=== PATIENT | female | born 1925 | race Caucasian/White ===

== ENCOUNTER 2016-02-24 12:19 | Emergency (ER) | payer OTHER, MEDICARE ==
[~2016-02-24] VITALS: Ht 152.4 cm; Wt 64.1 kg
[~2016-02-24 12:19] MED LIST: ACET-1311 PO; ALBUAER19 INH; ALL60 PO; ANT125 PO; ASPCH81 PO; BIOT1TAB2 PO; CALC-20 PO; DICL1GEL12 TOP; DOCU-94 PO; GLUC10007 PO; LEVO50TA PO; LIDO4PAD3 TOP; LPT10 PO; LSN25 PO; MULT-506 PO; NORT10CA4 PO; NTRGSL/4 UT; SYN50 PO; TNR25 PO
[2016-02-24 12:24] VITALS: TEMP 36.5; Ht 152.4 cm; Wt 64.1 kg
[2016-02-24 12:45] VITALS: O2SAT 97
[2016-02-24 13:18] LABS: BASO % 0.6 %; BASO ABS # 0.05 K/uL (0-0.2); COMPLETE YES; HEMATOCRIT 34.3 % (37-47); IG% 0.3 %; LYMPH % 18.5 %; LYMPH ABS # 1.67 K/uL (1.2-3.4); MEAN CELL VOLUME 98.3 fL (80-100); MEAN CORPUSCULAR HEMOGLOBIN 33.2 pg (25-34); MEAN CORPUSCULAR HGB CONC 33.8 g/dl (32-36); MEAN PLATELET VOLUME 9.1 fL (7.4-10.4); MONO % 9.1 %; NEUT % 69.5 %; PLATELET COUNT 313 K/uL (130-400); RED BLOOD COUNT 3.49 M/uL (4.2-5.4); WHITE BLOOD COUNT 9.02 K/uL (4.8-10.8)
[2016-02-24] MEDS ORDERED: CYAN10005 PO (13:33)
[2016-02-24] MEDS ORDERED: POLY1POW2 PO (13:33)
[2016-02-24] MEDS ORDERED: MULT-190 PO (13:33)
[2016-02-24 13:36] LABS: ALT/SGPT 49 U/L (12-78); BLOOD UREA NITROGEN 35 mg/dl (7-18); BUN/CREATININE RATIO 20.7 (10-20); CALCIUM 9.4 mg/dl (8.5-10.1); CARBON DIOXIDE 28 mmol/L (21-32); CHLORIDE 103 mmol/L (98-107); GLUCOSE 94 mg/dl (70-99); MAGNESIUM 2.2 mg/dl (1.8-2.4); POTASSIUM 4.8 mmol/L (3.5-5.1); SODIUM 139 mmol/L (136-145)
[2016-02-24 13:39] LABS: ALKALINE PHOSPHATASE 154 U/L (45-117); AST/SGOT 39 U/L (15-37)
--- NOTE | 2016-02-24 13:39 | DIAGNOSTIC IMAGING REPORT ---
CHEST ONE VIEW PORTABLE CLINICAL HISTORY: Altered mental status. Weakness. Hypertension. COMPARISON STUDY: 01/11/2016 FINDINGS: The heart is normal in size. There is slight interstitial thickening. This appears more pronounced than the prior study. The findings likely represent either mild pulmonary vascular congestion or interstitial inflammatory process.[ There is no lobar consolidation. There are minor left basilar atelectatic changes. There is no significant pleural fluid. IMPRESSION: Mild elevation of the interstitium, likely secondary to either mild pulmonary vascular congestion or interstitial inflammatory process. Clinical and radiographic follow-up is recommended Electronically signed by: Mariano Paz M.D. 02/24/2016 1:37 PM
--- NOTE | 2016-02-24 14:17 | EMERGENCY ROOM VISIT NOTE ---
History Report prepared by Rona: Ana Laura Negrete Under the Supervision of: Dr. Loc Webb D.O. First contact with patient: 12:45 Chief Complaint: HYPERTENSION Stated Complaint: HIGH BLOOD PRESSURE, BLURRY VISION History of Present Illness The patient is an 89 year old female arriving from [facility] who presents to the Emergency Room with complaints of hypertension, which has been elevated around 180/88 since yesterday. Since the time of onset, the patient states that she has had a headache and blurry vision, and she rates her current discomfort as a 5/10. The patient was recently admitted to the hospital for uncontrolled hypertension on February 11. During her visit, she was placed on Lisinopril along with the continuation of her other multiple blood pressure medications. Per daughter, the patient's blood pressure is normally around 150/75 at baseline , but it frequently increases secondary to chronic pain due to a previous left orbital fracture and spinal fractures after suffering a fall last spring. The patient was previously staying at [facility] but is now at [facility] for continuation of her therapy. Patient denies feeling light headed or dizzy and she does not have other complaints at this time. Daughter states that she is concerned because [facility] has not been taking the patient's blood pressure regularly as they state that they need a doctor's order to do so. She is also concerned because the patient has been acting more irritable than normal, but she is unsure if it is just due to going through the holidays without her daughter, who recently . Source of History: patient, family Onset: yesterday Position: other (generalized) Symptom Intensity: 5/10 Quality: other (htn) Associated Symptoms: + headache Note: Patient has blurred vision. She denies feeling light headed or dizzy. Review of Systems See HPI for pertinent positives & negatives. A total of 10 systems reviewed and were otherwise negative. Past Medical & Surgical Medical Problems: (1) Benign hypertension (2) Coronary artery disease (3) Elevated BP (4) Hyperlipidemia (5) Hypothyroidism (6) Urinary incontinence Surgical Problems: (1) History of arthroscopic knee surgery (2) History of bilateral cataract extraction (3) History of bladder surgery (4) History of hernia repair Family History Lung disease Social History Smoking Status: Never Smoker Alcohol Use: none Drug Use: none Marital Status: Housing Status: unknown Occupation Status: unemployed Current/Historical Medications Scheduled Acetaminophen (Tylenol), 650 MG PO DAILY Aspirin (Aspirin Tab-Chewable *), 81 MG PO BID Atenolol (Atenolol), 37.5 MG PO BID Atorvastatin (Atorvastatin Calcium), 10 MG PO DAILY Calcium Carbonate-Vitamin D (Calcium 600 + D), 1 TAB PO DAILY Cyanocobalamin (Vitamin B-12), 1,000 MCG PO DAILY Levothyroxine Sodium (Synthroid), 100 MCG PO UD Levothyroxine Sodium (Synthroid), 75 MCG PO UD Lisinopril (Lisinopril), 2.5 MG PO QAM Nitroglycerin (Nitrostat), 0.4 MG UT PRN Nortriptyline HCl (Nortriptyline HCl), 10 MG PO QPM Ocuvite Preservision (Ocuvite Preservision), 1 TAB PO DAILY Polyethylene Glycol 3350 (Bulk (Polyethylene Glycol 3350), 17 GM PO DAILY Scheduled PRN Docusate Sodium (Colace), 100 MG PO DAILY PRN for Constipation Allergies Coded Allergies: Quinolones (Unverified Allergy, Intermediate, , 02/24/16) Calcium Channel Blockers (Verified Allergy, Mild, 02/24/16) Felodipine (Verified Allergy, Mild, 02/24/16) Amlodipine (Verified Allergy, Unknown, UNKN, 02/24/16) Chloramphenicol (Verified Allergy, Unknown, UNKN, 02/24/16) Escitalopram (Verified Allergy, Unknown, UNKN, 02/24/16) Hydrochlorothiazide (Verified Allergy, Unknown, ., 02/24/16) Levalbuterol Hydrochloride (Verified Allergy, Unknown, UNKN, 02/24/16) Levofloxacin (Verified Allergy, Unknown, UNKN, 02/24/16) Terazosin (Verified Allergy, Unknown, UNKN, 02/24/16) Physical Exam Vital Signs Date Time Temp Pulse Resp B/P Pulse Ox O2 Delivery O2 Flow Rate FiO2 02/24/16 14:06 69 02/24/16 13:43 96 22 161/68 97 Room Air 02/24/16 12:46 69 18 178/79 97 Room Air 02/24/16 12:45 97 Room Air 02/24/16 12:24 36.5 74 18 151/75 98 Room Air Physical Exam VITAL SIGNS: were reviewed as above. GENERAL:Non-toxic in appearance. SKIN: Warm dry and pink. HEAD: Normocephalic and atraumatic. OROPHARYNX: Is clear and moist NECK: Supple without lymphadenopathy or meningismus. LUNGS: clear. HEART: Regular rate and rhythm. ABDOMEN: Soft and nontender. EXTREMITIES: Warm and well perfused. NEUROLOGICALLY: Awake alert and oriented without focal deficit. Cranial nerves 2 -12 are intact. There is no pronator drift. Cerebellar testing is within normal limits. There is no nystagmus. There is no facial droop. Speech is clear. Vision is grossly normal. MUSCULOSKELETAL: Good muscle tone. No evidence of trauma. Medical Decision & Procedures ER Provider Diagnostic Interpretation: X ray results and stated below per my interpretation and radiology interpretation. CHEST ONE VIEW PORTABLE CLINICAL HISTORY: Altered mental status. Weakness. Hypertension. COMPARISON STUDY: 01/11/2016 FINDINGS: The heart is normal in size. There is slight interstitial thickening. This appears more pronounced than the prior study. The findings likely represent either mild pulmonary vascular congestion or interstitial inflammatory process.[ There is no lobar consolidation. There are minor left basilar atelectatic changes. There is no significant pleural fluid. IMPRESSION: Mild elevation of the interstitium, likely secondary to either mild pulmonary vascular congestion or interstitial inflammatory process. Clinical and radiographic follow-up is recommended Electronically signed by: Mariano Paz M.D. 02/24/2016 1:37 PM Laboratory Results 02/24/16 13:10 Red Blood Count 3.49, Mean Corpuscular Volume 98.3, Mean Corpuscular Hemoglobin 33.2, Mean Corpuscular Hemoglobin Concent 33.8, Mean Platelet Volume 9.1, Neutrophils (%) (Auto) 69.5, Lymphocytes (%) (Auto) 18.5, Monocytes (%) (Auto) 9.1, Eosinophils (%) (Auto) 2.0, Basophils (%) (Auto) 0.6, Neutrophils # (Auto) 6.27, Lymphocytes # (Auto) 1.67, Monocytes # (Auto) 0.82, Eosinophils # (Auto) 0.18, Basophils # (Auto) 0.05 02/24/16 13:10 Test 02/24/16 13:10 White Blood Count 9.02 K/uL (4.8-10.8) Red Blood Count 3.49 M/uL (4.2-5.4) Hemoglobin 11.6 g/dL (12.0-16.0) Hematocrit 34.3 % (37-47) Mean Corpuscular Volume 98.3 fL (80-100) Mean Corpuscular Hemoglobin 33.2 pg (25-34) Mean Corpuscular Hemoglobin Concent 33.8 g/dl (32-36) Platelet Count 313 K/uL (130-400) Mean Platelet Volume 9.1 fL (7.4-10.4) Neutrophils (%) (Auto) 69.5 % Lymphocytes (%) (Auto) 18.5 % Monocytes (%) (Auto) 9.1 % Eosinophils (%) (Auto) 2.0 % Basophils (%) (Auto) 0.6 % Neutrophils # (Auto) 6.27 K/uL (1.4-6.5) Lymphocytes # (Auto) 1.67 K/uL (1.2-3.4) Monocytes # (Auto) 0.82 K/uL (0.11-0.59) Eosinophils # (Auto) 0.18 K/uL (0-0.5) Basophils # (Auto) 0.05 K/uL (0-0.2) RDW Standard Deviation 49.0 fL (36.4-46.3) RDW Coefficient of Variation 13.8 % (11.5-14.5) Immature Granulocyte % (Auto) 0.3 % Immature Granulocyte # (Auto) 0.03 K/uL (0.00-0.02) Anion Gap 8.0 mmol/L (3-11) Est Creatinine Clear Calc Drug Dose 18.7 ml/min Estimated GFR () 30.5 Estimated GFR (Non- 26.3 BUN/Creatinine Ratio 20.7 (10-20) Calcium Level 9.4 mg/dl (8.5-10.1) Magnesium Level 2.2 mg/dl (1.8-2.4) Total Bilirubin 0.3 mg/dl (0.2-1) Direct Bilirubin 0.1 mg/dl (0-0.2) Aspartate Amino Transf (AST/SGOT) 39 U/L (15-37) Alanine Aminotransferase (ALT/SGPT) 49 U/L (12-78) Alkaline Phosphatase 154 U/L (45-117) Total Creatine Kinase 46 U/L (26-192) Creatine Kinase MB < 0.5 ng/ml (0.5-3.6) Creatine Kinase MB Ratio (0-3.0) Troponin I < 0.015 ng/ml (0-0.045) Total Protein 7.0 gm/dl (6.4-8.2) Albumin 3.7 gm/dl (3.4-5.0) Lipase 181 U/L (73-393) Laboratory results as stated above per my review. ED Course 1248: Previous medical records were reviewed. The patient was evaluated in room C2. A complete history and physical examination was performed. 1415: Upon reevaluation, the patient appeared to be doing well and was resting more comfortably. I updated her and her family on the results of her radiology reports and lab tests. Discharge instructions were also discussed at this time. They verbalized their understanding and agreement with the treatment plan, and she is now ready for disposition. Medical Decision Differential diagnosis: Etiologies such as benign hypertension, hypertensive emergency, cardiovascular pathology, pheochromocytoma, electrolyte abnormality, renal disease, endorgan damage, as well as others were entertained. This is an 89-year-old female who presents to the ED with a chief complaint of hypertension. The patient states that she had a slight headache and some blurring of her vision earlier today. She states that her blood pressure was elevated and she came here for evaluation. Her initial blood pressure on my assessment was 178/79. Her physical exam did not show any obvious abnormalities. Funduscopic exam of the eyes was normal. The eyes otherwise had no abnormal visible findings. X-ray of her motion was intact. The patient' s neurologic exam was also normal. CBC was normal, BUN is 35 creatinine is 1.7. Cardiac enzymes are negative. Chest x-ray was negative for acute disease. The patient was told results. She is felt to be stable for discharge. She has follow-up with her PCP tomorrow. Last BP here was 156/87. Impression Primary Impression: Elevated BP Additional Impression: Renal insufficiency Scribe Attestation The scribe's documentation has been prepared under my direction and personally reviewed by me in its entirety. I confirm that the note above accurately reflects all work, treatment, procedures, and medical decision making performed by me. Departure Information Dispostion Home / Self-Care Referrals David Henao PA-C (PCP) Forms HOME CARE DOCUMENTATION FORM, IMPORTANT VISIT INFORMATION, WORK / SCHOOL INSTRUCTIONS Patient Instructions A Signature Page, Hypertension Control, My [facility] [employer] Additional Instructions Talk to your doctor about further hypertension management. See your doctor tomorrow as scheduled. Follow-up with your doctor for further care and evaluation in 1-2 days. Return to the emergency department for worsening or new symptoms or any concerns. You have been examined and treated today on an emergency basis only. This is not a substitute for, or an effort to provide, complete comprehensive medical care. It is impossible to recognize and treat all injuries or illnesses in a single emergency department visit. It is therefore important that you follow up closely with your doctor. Call as soon as possible for an appointment.
[2016-02-24 14:51] VITALS: BP 163/65; PULSE 70; O2SAT 96
== END 2016-02-24 14:52 | disposition home or self-care (01) ==
LOC: C.EDB 12:23 → C.EDC 14:52
DX: I10 Essential (primary) hypertension (principal); N28.9 Disorder of kidney and ureter, unspecified; G89.29 Other chronic pain; I25.10 Atherosclerotic heart disease of native coronary artery without angina pectoris; E78.5 Hyperlipidemia, unspecified; E03.9 Hypothyroidism, unspecified; Z79.82 Long term (current) use of aspirin

== ENCOUNTER 2016-03-31 20:33 | Inpatient (IN) | payer OTHER, MEDICARE ==
[~2016-03-31] VITALS: Ht 154.9 cm; Wt 66.8 kg
[~2016-03-31 20:33] MED LIST changes: -ALBUAER19 INH; -ALL60 PO; -ANT125 PO; -BIOT1TAB2 PO; +CYAN10005 PO; -DICL1GEL12 TOP; -GLUC10007 PO; -LIDO4PAD3 TOP; +MULT-190 PO; -MULT-506 PO; +POLY1POW2 PO
[2016-03-31] MEDS ORDERED: FENTANYL CITRATE INJ 50 MCG/1 ML 2 ML VIAL IV STA (21:13)
--- NOTE | 2016-03-31 21:58 | EMERGENCY ROOM VISIT NOTE ---
History First contact with patient: 21:02 Chief Complaint: HIP PAIN Stated Complaint: FALL, HIP PAIN, KNEE PAIN History of Present Illness The patient is a 89 year old female who presents to the Emergency Room via BLS with complaints of right hip pain after a fall. The patient reports that she was getting dressed for bed and tripped while taking that her pains off, falling onto her right hip. She lives in [facility]. She denies hitting her head when she fell. She denies any other injuries. She reports pain in the right hip radiating down into the right knee. She denies previous injuries to the hip. She rates her discomfort a 10/10. She denies any numbness of the leg, but states she is unable to lift the leg off the bed. The patient has not taken anything for pain. She denies any significant cardiac history. She denies headache, dizziness, chest pain, shortness of breath, abdominal pain or urinary symptoms. Review of Systems A complete 10-point Review of Systems was discussed with the patient, with pertinent positives and negatives listed in the History of Present Illness. All remaining Review of Systems questions can be considered negative unless otherwise specified. Past Medical/Surgical History Medical Problems: (1) Benign hypertension (2) Coronary artery disease (3) Elevated BP (4) Hyperlipidemia (5) Hypothyroidism (6) Urinary incontinence Surgical Problems: (1) History of arthroscopic knee surgery (2) History of bilateral cataract extraction (3) History of bladder surgery (4) History of hernia repair Family History Lung disease Social History Smoking Status: Never Smoker Alcohol Use: none Drug Use: none Marital Status: Housing Status: unknown Occupation Status: unemployed Current/Historical Medications Scheduled Acetaminophen (Tylenol), 650 MG PO DAILY Aspirin (Aspirin Ec), 81 MG PO DAILY Atenolol (Atenolol), 37.5 MG PO BID Atorvastatin (Atorvastatin Calcium), 10 MG PO DAILY Calcium Carbonate-Vitamin D (Sm Calcium 500/Vitamin D3), 1 TAB PO DAILY Cyanocobalamin (Vitamin B-12), 1,000 MCG PO DAILY Diclofenac Sod (Voltaren), 1 APPLN TOP DAILY Levothyroxine Sodium (Synthroid), 100 MCG PO UD Levothyroxine Sodium (Synthroid), 75 MCG PO UD Lisinopril (Lisinopril), 2.5 MG PO BID Nitroglycerin (Nitrostat), 0.4 MG UT PRN Nortriptyline HCl (Nortriptyline HCl), 10 MG PO QPM Ocuvite Preservision (Ocuvite Preservision), 1 TAB PO DAILY Scheduled PRN Albuterol Hfa (Ventolin Hfa), 2 PUFF INH Q4 PRN for Wheezing Docusate Sodium (Colace), 100 MG PO DAILY PRN for Constipation Miscellaneous Medications Glucosamine Sulfate (Glucosamine), Unknown Dose Allergies Coded Allergies: Quinolones (Unverified Allergy, Intermediate, , 03/31/16) Calcium Channel Blockers (Verified Allergy, Mild, 03/31/16) Felodipine (Verified Allergy, Mild, 03/31/16) Amlodipine (Verified Allergy, Unknown, UNKN, 03/31/16) Chloramphenicol (Verified Allergy, Unknown, UNKN, 03/31/16) Escitalopram (Verified Allergy, Unknown, UNKN, 03/31/16) Hydrochlorothiazide (Verified Allergy, Unknown, ., 03/31/16) Levalbuterol Hydrochloride (Verified Allergy, Unknown, UNKN, 03/31/16) Levofloxacin (Verified Allergy, Unknown, UNKN, 03/31/16) Levothyroxine (Unverified Allergy, Unknown, UNKNOWN(CAN'T TAKE GENERIC, BRAND SYNTHROID IS OK), 03/31/16) Terazosin (Verified Allergy, Unknown, UNKN, 03/31/16) Physical Exam Vital Signs Date Time Temp Pulse Resp B/P Pulse Ox O2 Delivery O2 Flow Rate FiO2 03/31/16 22:12 72 18 164/74 98 Room Air 03/31/16 20:45 72 03/31/16 20:37 98 Room Air 03/31/16 20:35 36.6 87 18 178/98 97 Room Air Physical Exam VITALS: Vitals are noted on the nurse's note and reviewed by myself. Vital signs stable. GENERAL: This is an 89-year-old female, in no acute distress, nondiaphoretic, well-developed well-nourished. SKIN: The skin was without rashes, erythema, edema, or bruising. HEAD: Normocephalic atraumatic. EYES: Pupils equal round and reactive to light and accommodation. MOUTH: Mucous membranes moist. NECK: Supple without nuchal rigidity. Cervical spine is nontender. HEART: Regular rate and rhythm without murmurs gallops or rubs. LUNGS: Clear to auscultation bilaterally without wheezes, rales or rhonchi. ABDOMEN: Positive bowel sounds x 4. Soft, nontender. MUSCULOSKELETAL: The right leg is shortened and externally rotated. Tenderness over the lateral hip and lateral right knee. Dorsalis pedis pulses 2+. NEURO: Patient was alert and oriented to person place and time. Normal sensation to light and sharp touch. Medical Decision & Procedures ER Provider Diagnostic Interpretation: RIGHT FEMUR 2 VIEWS ROUTINE IMPRESSION: 1. Acute intertrochanteric right hip fracture. 2. 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 Laboratory Results 03/31/16 22:25 Red Blood Count 3.46, Mean Corpuscular Volume 98.3, Mean Corpuscular Hemoglobin 33.5, Mean Corpuscular Hemoglobin Concent 34.1, Mean Platelet Volume 9.4, Neutrophils (%) (Auto) 86.0, Lymphocytes (%) (Auto) 7.1, Monocytes (%) (Auto) 5.7, Eosinophils (%) (Auto) 0.6, Basophils (%) (Auto) 0.2, Neutrophils # (Auto) 15.27, Lymphocytes # (Auto) 1.25, Monocytes # (Auto) 1.01, Eosinophils # (Auto) 0.10, Basophils # (Auto) 0.03 Test 03/31/16 22:25 White Blood Count 17.73 K/uL (4.8-10.8) Red Blood Count 3.46 M/uL (4.2-5.4) Hemoglobin 11.6 g/dL (12.0-16.0) Hematocrit 34.0 % (37-47) Mean Corpuscular Volume 98.3 fL (80-100) Mean Corpuscular Hemoglobin 33.5 pg (25-34) Mean Corpuscular Hemoglobin Concent 34.1 g/dl (32-36) Platelet Count 274 K/uL (130-400) Mean Platelet Volume 9.4 fL (7.4-10.4) Neutrophils (%) (Auto) 86.0 % Lymphocytes (%) (Auto) 7.1 % Monocytes (%) (Auto) 5.7 % Eosinophils (%) (Auto) 0.6 % Basophils (%) (Auto) 0.2 % Neutrophils # (Auto) 15.27 K/uL (1.4-6.5) Lymphocytes # (Auto) 1.25 K/uL (1.2-3.4) Monocytes # (Auto) 1.01 K/uL (0.11-0.59) Eosinophils # (Auto) 0.10 K/uL (0-0.5) Basophils # (Auto) 0.03 K/uL (0-0.2) RDW Standard Deviation 48.5 fL (36.4-46.3) RDW Coefficient of Variation 13.5 % (11.5-14.5) Immature Granulocyte % (Auto) 0.4 % Immature Granulocyte # (Auto) 0.07 K/uL (0.00-0.02) Medications Administered Medications (Trade) Dose Ordered Sig/[place] Route Start Time Stop Time Status Last Admin Dose Admin Fentanyl Citrate (Fentanyl Inj) 50 mcg NOW STAT IV 03/31/16 21:13 03/31/16 21:15 DC 03/31/16 21:33 50 MCG ECG Rate (beats per minute): 72 Rhythm: normal sinus Findings: no acute ischemic change, no ectopy Comparison ECG Date: no prior available Medical Decision Differential diagnosis includes hip fracture, hip dislocation, contusion, sprain , among others. The patient was evaluated as above. Labs were drawn and IV access was obtained. Imaging studies were performed and read by radiology as above. The patient was medicated with 50 mg fentanyl IV. She had continued pain and was given 4 mg morphine IV. The patient was reassessed multiple times during their stay in the emergency department and remained in stable condition. The patient is an 89-year-old female who presents today complaining of right hip pain after a fall. X-ray showed a right intertrochanteric hip fracture. There is fragmentation of the patella which may be chronic. Preoperative labs, chest x-ray and EKG were performed. Case was discussed with Dr. Angel, on- call for [facility], who recommended medical admission. All findings were discussed with the patient and family members. They verbalized their understanding. Case was discussed with the [facility] hospitalist, who agreed to evaluate the patient for admission. Impression Primary Impression: Intertrochanteric fracture of right hip Departure Information Referrals David Henao PA-C (PCP) Patient Instructions Critical Access Hospital Problem Qualifiers Primary Impression: Intertrochanteric fracture of right hip Encounter type: initial encounter Fracture type: closed Qualified Codes: S72.141A - Displaced intertrochanteric fracture of right femur, initial encounter for closed fracture
[2016-03-31] MEDS ORDERED: CALC-55 PO (22:08)
[2016-03-31] MEDS ORDERED: VLTG TOP (22:08)
[2016-03-31] MEDS ORDERED: GLUC500C4 (22:08)
[2016-03-31] MEDS ORDERED: ASPI81TA28 PO (22:08)
[2016-03-31] MEDS ORDERED: LSN25 PO (22:08)
[2016-03-31] MEDS ORDERED: VNTHFA/IN INH (22:08)
--- NOTE | 2016-03-31 22:20 | DIAGNOSTIC IMAGING REPORT ---
RIGHT FEMUR 2 VIEWS ROUTINE CLINICAL HISTORY: Right hip pain status post trauma COMPARISON: None. DISCUSSION: There is an acute intertrochanteric right hip fracture with varus angulation. No additional femoral fractures are visualized. There are osteoarthritic changes present at the level of the knee. Fragmentation of the patella, is likely chronic. IMPRESSION: 1. Acute intertrochanteric right hip fracture. 2. 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 03/31/2016 10:19 PM Dictated Date/Time: 03/31/2016 10:17 PM
--- NOTE | 2016-03-31 22:21 | DIAGNOSTIC IMAGING REPORT ---
PELVIS 1 OR 2 VIEW ROUTINE CLINICAL HISTORY: Pelvic pain status post trauma COMPARISON STUDY: No previous studies for comparison. FINDINGS: There is an acute intertrochanteric right hip fracture with resultant varus angulation. The bones are osteopenic. IMPRESSION: Intertrochanteric right hip fracture Electronically signed by: Mariano Paz M.D. 03/31/2016 10:20 PM Dictated Date/Time: 03/31/2016 10:19 PM
--- NOTE | 2016-03-31 22:22 | DIAGNOSTIC IMAGING REPORT ---
CHEST ONE VIEW PORTABLE CLINICAL HISTORY: Hip fracture. Trauma. COMPARISON STUDY: 02/24/2016 FINDINGS: The heart is at the upper limits of normal in size. There is no failure. There is no lobar consolidation. There are minor basilar atelectatic changes.[ IMPRESSION: No active disease in the chest. Electronically signed by: Mariano Paz M.D. 03/31/2016 10:20 PM Dictated Date/Time: 03/31/2016 10:20 PM
[2016-03-31 22:42] LABS: BASO % 0.2 %; BASO ABS # 0.03 K/uL (0-0.2); COMPLETE YES; EOS % 0.6 %; IG% 0.4 %; LYMPH % 7.1 %; LYMPH ABS # 1.25 K/uL (1.2-3.4); MEAN CELL VOLUME 98.3 fL (80-100); MEAN CORPUSCULAR HEMOGLOBIN 33.5 pg (25-34); MEAN CORPUSCULAR HGB CONC 34.1 g/dl (32-36); MEAN PLATELET VOLUME 9.4 fL (7.4-10.4); MONO % 5.7 %; PLATELET COUNT 274 K/uL (130-400); RED BLOOD COUNT 3.46 M/uL (4.2-5.4); WHITE BLOOD COUNT 17.73 K/uL (4.8-10.8)
[2016-03-31] MEDS ORDERED: MoRPHine SULFATE 4 MG/ML 1 ML CARP\\VIAL IV STA (22:49)
[2016-03-31 22:53] LABS: PARTIAL THROMBOPLASTIN RATIO 0.9; PROTHROMBIN TIME (PATIENT) 10.7 SECONDS (9.0-12.0)
[2016-03-31 22:56] LABS: BUN/CREATININE RATIO 22.7 (10-20); CALCIUM 8.9 mg/dl (8.5-10.1); CREATININE 1.8 mg/dl (0.60-1.20); POTASSIUM 4.3 mmol/L (3.5-5.1)
[2016-03-31 22:58] LABS: ALB/GLOB RATIO 1.3 (0.9-2)
[2016-03-31] MEDS ORDERED: ONDANSETRON INJ 2 MG/ML 2 ML VIAL IV PRN (23:45)
[2016-03-31] MEDS ORDERED: MAGNESIUM HYDROXIDE SUSP 30 ML UDC PO PRN (23:45)
[2016-03-31] MEDS ORDERED: ALUMINUM/MAGNESIUM/SIMETH (MAALOX MAX) 30 ML UDC PO PRN (23:45)
[2016-04-01] VITALS (10 sets, daily range): BP systolic 128–171; BP diastolic 52–74; PULSE 78–88; TEMP 36.2–37.1; O2SAT 91–100; Ht 154.9 cm; Wt 66.8 kg
[2016-04-01] MEDS: ACETAMINOPHEN 325 MG TAB PO PRN ×2 (01:10→19:49)
[2016-04-01] MEDS ORDERED: MoRPHine SULFATE 2 MG/ML CARP IV PRN (01:30)
[2016-04-01] MEDS ORDERED: DOCUSATE SODIUM 100 MG CAP PO PRN (01:30)
[2016-04-01] MEDS ORDERED: ALBUTEROL HFA 8 GM INHALER INH PRN (01:30)
[2016-04-01] MEDS ORDERED: NITROGLYCERIN 0.4 MG SL PER TAB CHARGE UT SCH (01:30)
[2016-04-01] MEDS ORDERED: MoRPHine SULFATE 4 MG/ML 1 ML CARP\\VIAL IV PRN (01:30)
[2016-04-01] MEDS: SODIUM CHLORIDE 0.9% 1000ML 1,000 ML IV SCH ×3 (01:56→17:16)
--- NOTE | 2016-04-01 01:56 | History and Physical ---
History & Physical Date & Time of Service: Apr 01, 2016 at 01:52 Chief Complaint: Intertrochanteric Fracture Of Right Hip Primary Care Physician: David Henao PA-C History of Present Illness Source: patient This is an 89 yo f that is presenting to us after a fall and having suffered a right intertrochanteric fracture. She states that she was getting into bed and had a mechanical fall. She denies having hit her head. She denies any dizziness , chest pain, palpitations or shortness or breath. She currently is unable to move her right left because of pain. It is currently a 10/10 with any movement but is acceptable when patient is resting. She has a history of a closed head injury in the past patient will occasionally repeat histories over again during the interview however patient is completely oriented. Past Medical/Surgical History Medical Problems: (1) Benign hypertension Status: Chronic (2) Coronary artery disease Status: Chronic (3) Hyperlipidemia Status: Chronic (4) Hypothyroidism Status: Chronic (5) Urinary incontinence Status: Chronic Family History Lung disease Social History Smoking Status: Never Smoker Smokeless Tobacco Use: No Alcohol Use: none Drug Use: none Marital Status: Occupational Status: unemployed Immunizations History of Influenza Vaccine: Yes Influenza Vaccine Date: Nov 22, 2011 History of Tetanus Vaccine?: long time ago History of Pneumococcal: Unknown History of Hepatitis B Vaccine: Unknown Multi-Drug Resistant Organisms History of MDRO: No Allergies Coded Allergies: Quinolones (Unverified Allergy, Intermediate, , 03/31/16) Calcium Channel Blockers (Verified Allergy, Mild, 03/31/16) Felodipine (Verified Allergy, Mild, 03/31/16) Amlodipine (Verified Allergy, Unknown, UNKN, 03/31/16) Chloramphenicol (Verified Allergy, Unknown, UNKN, 03/31/16) Escitalopram (Verified Allergy, Unknown, UNKN, 03/31/16) Hydrochlorothiazide (Verified Allergy, Unknown, ., 03/31/16) Levalbuterol Hydrochloride (Verified Allergy, Unknown, UNKN, 03/31/16) Levofloxacin (Verified Allergy, Unknown, UNKN, 03/31/16) Levothyroxine (Unverified Allergy, Unknown, UNKNOWN(CAN'T TAKE GENERIC, BRAND SYNTHROID IS OK), 03/31/16) Terazosin (Verified Allergy, Unknown, UNKN, 03/31/16) Home Medications Scheduled Acetaminophen (Tylenol), 650 MG PO DAILY Aspirin (Aspirin Ec), 81 MG PO DAILY Atenolol (Atenolol), 37.5 MG PO BID Atorvastatin (Atorvastatin Calcium), 10 MG PO DAILY Calcium Carbonate-Vitamin D (Sm Calcium 500/Vitamin D3), 1 TAB PO DAILY Cyanocobalamin (Vitamin B-12), 1,000 MCG PO DAILY Diclofenac Sod (Voltaren), 1 APPLN TOP DAILY Levothyroxine Sodium (Synthroid), 100 MCG PO UD Levothyroxine Sodium (Synthroid), 75 MCG PO UD Lisinopril (Lisinopril), 2.5 MG PO BID Nitroglycerin (Nitrostat), 0.4 MG UT PRN Nortriptyline HCl (Nortriptyline HCl), 10 MG PO QPM Ocuvite Preservision (Ocuvite Preservision), 1 TAB PO DAILY Scheduled PRN Albuterol Hfa (Ventolin Hfa), 2 PUFF INH Q4 PRN for Wheezing Docusate Sodium (Colace), 100 MG PO DAILY PRN for Constipation Miscellaneous Medications Glucosamine Sulfate (Glucosamine), Unknown Dose Review of Systems Constitutional: No fever Eyes: No worsening of vision ENT: No hearing loss Respiratory: No cough, No dyspnea at rest, No dyspnea on exertion, No shortness of breath, No sputum, No wheezing Cardiovascular: No chest pain Abdomen: No constipation, No diarrhea, No nausea, No pain, No vomiting Musculoskeletal: + joint pain, + muscle pain Psychiatric: No anxiety, No depression symptoms Endocrine: No fatigue Integumentary: No rash Physical Exam Vital Signs Date Time Temp Pulse Resp B/P Pulse Ox O2 Delivery O2 Flow Rate FiO2 04/01/16 00:08 36.2 82 14 168/70 94 Room Air 03/31/16 23:39 79 16 145/60 94 Room Air 03/31/16 22:12 72 18 164/74 98 Room Air 03/31/16 20:45 72 03/31/16 20:37 98 Room Air 03/31/16 20:35 36.6 87 18 178/98 97 Room Air General Appearance: WD/WN, no apparent distress Head: normocephalic, atraumatic Eyes: normal inspection ENT: normal ENT inspection, + pertinent finding (NINILCHIK) Neck: supple Respiratory/Chest: lungs clear, normal breath sounds, no respiratory distress, no accessory muscle use Cardiovascular: regular rate, rhythm, no murmur Abdomen/GI: normal bowel sounds, non tender, soft Back: normal inspection Extremities/Musculoskelatal: no pedal edema, + pertinent finding (able to move right toes, neurovascularly intact in both LE, swelling noted over the right hip but no open wounds) Neurologic/Psych: alert, normal mood/affect, oriented x 3 Skin: normal color, warm/dry, no rash Lymphatic: no adenopathy Diagnostics Laboratory Results Results Past 24 Hours Test 03/31/16 22:25 Range/Units White Blood Count 17.73 4.8-10.8 K/uL Red Blood Count 3.46 4.2-5.4 M/uL Hemoglobin 11.6 12.0-16.0 g/dL Hematocrit 34.0 37-47 % Mean Corpuscular Volume 98.3 80-100 fL Mean Corpuscular Hemoglobin 33.5 25-34 pg Mean Corpuscular Hemoglobin Concent 34.1 32-36 g/dl Platelet Count 274 130-400 K/uL Mean Platelet Volume 9.4 7.4-10.4 fL Neutrophils (%) (Auto) 86.0 % Lymphocytes (%) (Auto) 7.1 % Monocytes (%) (Auto) 5.7 % Eosinophils (%) (Auto) 0.6 % Basophils (%) (Auto) 0.2 % Neutrophils # (Auto) 15.27 1.4-6.5 K/uL Lymphocytes # (Auto) 1.25 1.2-3.4 K/uL Monocytes # (Auto) 1.01 0.11-0.59 K/uL Eosinophils # (Auto) 0.10 0-0.5 K/uL Basophils # (Auto) 0.03 0-0.2 K/uL RDW Standard Deviation 48.5 36.4-46.3 fL RDW Coefficient of Variation 13.5 11.5-14.5 % Immature Granulocyte % (Auto) 0.4 % Immature Granulocyte # (Auto) 0.07 0.00-0.02 K/uL Prothrombin Time 10.7 9.0-12.0 SECONDS Prothromb Time International Ratio 1.0 0.9-1.1 Activated Partial Thromboplast Time 23.8 21.0-31.0 SECONDS Partial Thromboplastin Ratio 0.9 Sodium Level 137 136-145 mmol/L Potassium Level 4.3 3.5-5.1 mmol/L Chloride Level 100 98-107 mmol/L Carbon Dioxide Level 26 21-32 mmol/L Anion Gap 11.0 3-11 mmol/L Blood Urea Nitrogen 41 7-18 mg/dl Creatinine 1.80 0.60-1.20 mg/dl Est Creatinine Clear Calc Drug Dose 18.5 ml/min Estimated GFR () 28.4 Estimated GFR (Non- 24.5 BUN/Creatinine Ratio 22.7 10-20 Random Glucose 110 70-99 mg/dl Calcium Level 8.9 8.5-10.1 mg/dl Total Bilirubin 0.4 0.2-1 mg/dl Aspartate Amino Transf (AST/SGOT) 37 15-37 U/L Alanine Aminotransferase (ALT/SGPT) 40 12-78 U/L Alkaline Phosphatase 121 45-117 U/L Total Protein 7.0 6.4-8.2 gm/dl Albumin 3.9 3.4-5.0 gm/dl Globulin 3.1 2.5-4.0 gm/dl Albumin/Globulin Ratio 1.3 0.9-2 Microbiology Results 04/01/16 MRSA DNA Surveillance Screen, Received Pending Diagnostic Radiology CHEST ONE VIEW PORTABLE CLINICAL HISTORY: Hip fracture. Trauma. COMPARISON STUDY: 02/24/2016 FINDINGS: The heart is at the upper limits of normal in size. There is no failure. There is no lobar consolidation. There are minor basilar atelectatic changes.[ IMPRESSION: No active disease in the chest. RIGHT FEMUR 2 VIEWS ROUTINE CLINICAL HISTORY: Right hip pain status post trauma COMPARISON: None. DISCUSSION: There is an acute intertrochanteric right hip fracture with varus angulation. No additional femoral fractures are visualized. There are osteoarthritic changes present at the level of the knee. Fragmentation of the patella, is likely chronic. IMPRESSION: 1. Acute intertrochanteric right hip fracture. 2. 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 FINDINGS: There is an acute intertrochanteric right hip fracture with resultant varus angulation. The bones are osteopenic. IMPRESSION: Intertrochanteric right hip fracture Impression Assessment and Plan This is a 89 yo f with a right intertrochanteric fracture which requires surgical intervention Right intertrochanteric fracture - NPO after midnight - consult ortho - pain control with morphine - zofran JESSICA on CKD III vs worsening CKD - Cr is currently 1.8 and was 1.7 in Feb - dec 2015 was 1.4 - question if this is worsening CKD - NSS @ 100 cc HTN - hold lisinopril - cont atenolol once not NPO - ASA held Hyperchol - cont atorvastatin once not NPO hypothyroidism - cont levo once not NPO Depression - cont nortriptyline once not NPO DVt prophylaxis - SCD FULL CODE Level of Care Med/Surg Resuscitation Status FULL RESUSCITATION VTE Prophylaxis VTE Risk Assessment Done? Y/N: Yes Risk Level: Moderate Given or contraindicated: SCD's Social Service Consult >80 yr.& Lives Alone Note Total Time: Critical Care 30 - 74 minutes Additional Copies To David Henao PA-C Assessment and Plan Attending Addendum: I have physically seen and examined this patient, have directed their medical care, have supervised the medical residents activities, and agree with the H&P as noted above, with the following changes: NONE The patient is awake, well-developed and adequately nourished, alert and oriented 3, normocephalic and atraumatic, lying in bed and in no acute distress. HEENT--PERRL, EOMI, mucous membranes and oropharynx dry. Neck--supple, no JVD or bruits, thyroid normal, trachea midline, no adenopathy. Heart--normal S1 and S2, no extra beats, no murmurs, rubs or gallops. Lungs--clear bilaterally, no respiratory distress, no accessory muscle use. Abdomen--normal bowel sounds and soft, nontender and nondistended, no hernias or masses, no organomegaly. Extremities--no cyanosis, clubbing or edema. There are good distal pulses b/l. Dermatologic--normal skin turgor, normal color, warm and dry, no abnormal lymph nodes, no rash. Neurologic--cranial nerves II through XII grossly intact. Rheumatologic--reproducible right hip pain. Psychiatric--normal affect. Assessment and Plan: Right intertrochanteric hip fracture--the patient be admitted to the medical surgical floor. She'll be kept nothing by mouth after midnight for possible surgery in the a.m. Her EKG and chest x-ray both been reviewed, and the patient be considered an acceptable risk for the upcoming surgery. Orthopedics will be consulted. 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 CAD/hypertension--continue atenolol for 7.5 mg by mouth twice a day. Hold lisinopril 2.5 mg by mouth twice a day and aspirin 81 mg by mouth daily. Hypothyroidism--continue levothyroxine sodium at present dosing 175 g by mouth daily. Hypercholesterolemia--continue atorvastatin 10 mg by mouth daily. Insomnia--continue nortriptyline 10 mg by mouth every afternoon.
[2016-04-01] MEDS: LEVOTHYROXINE 75 MCG TAB PO SCH (06:03)
[2016-04-01] MEDS: CYANOCOBALAMIN 500 MCG TAB (VIT B-12) PO SCH (07:10)
[2016-04-01] MEDS: CALCIUM 600MG + VIT D 400 IU TAB PO SCH (07:10)
[2016-04-01] MEDS: ACETAMINOPHEN 325 MG TAB PO SCH (07:10)
[2016-04-01] MEDS: CEROVITE ADV FORMULA TAB PO SCH (07:10)
[2016-04-01] MEDS: ATORVASTATIN 10 MG TAB PO SCH (07:10)
[2016-04-01] MEDS: DICLOFENAC SOD 1% GEL 100 GM TUBE EXT SCH (07:19)
[2016-04-01] MEDS ORDERED: HydrALAZINE HCL 20 MG/ML VIAL IV. PRN (07:45)
[2016-04-01] MEDS ORDERED: LISINOPRIL 2.5 MG TAB PO SCH (09:00)
[2016-04-01] MEDS ORDERED: FENTANYL CITRATE INJ 50 MCG/1 ML 2 ML VIAL IV PRN (13:15)
[2016-04-01] MEDS ORDERED: ATROPINE SULFATE 0.1 MG/ML 5ML SYR IV PRN (13:15)
[2016-04-01] MEDS ORDERED: ONDANSETRON INJ 2 MG/ML 2 ML VIAL IV PRN (13:15)
--- NOTE | 2016-04-01 13:34 | History & Physical Bridge Note ---
H&P Re-Evaluation Bridge Note: I have examined the patient, reviewed the History & Physical and in the interval since the performance of the History & Physical I have noted the following changes of clinical significance: No changes noted
[2016-04-01] MEDS ORDERED: NURSING VERBAL MED ORDER ONE (13:45)
[2016-04-01] MEDS ORDERED: CEFAZOLIN SOD 1000MG/55 ML D5W IV ONE (13:52)
--- NOTE | 2016-04-01 14:01 | Progress Note ---
Subjective Date of Service: Apr 01, 2016. Subjective Pt evaluation today including: conversation w/ patient, physical exam, chart review, lab review, review of studies, conversation w/ economics consultant, review of inpatient medication list Pain fairly controlled, awake and alert, conversational, no other complaints Problem List Medical Problems: (1) Blurred vision, bilateral Status: Acute (2) Hypertensive urgency Status: Acute (3) Intertrochanteric fracture of right hip Status: Acute (4) Left leg weakness Status: Acute (5) Near syncope Status: Acute (6) Pancreatitis Status: Acute (7) Renal insufficiency Status: Acute Review of Systems Constitutional: No chills, No fatigue, No fever, No problem reported, No see HPI, No sweats, No weakness, No weight loss Eyes: No diplopia, No discharge, No eye pain, No problem reported, No redness, No see HPI, No worsening of vision ENT: No dental problems, No hearing loss, No nasal symptoms, No problem reported, No see HPI, No sore throat, No tinnitus, No trouble swallowing, No unusual epistaxis Respiratory: No cough, No dyspnea at rest, No dyspnea on exertion, No hemoptysis, No problem reported, No see HPI, No shortness of breath, No sputum, No wheezing Cardiac: No PND, No chest pain, No claudication, No edema, No orthopnea, No palpitations, No problem reported, No see HPI Abdomen: No GI bleeding, No constipation, No diarrhea, No nausea, No pain, No problem reported, No see HPI, No vomiting Musculoskeletal: + joint pain (reported no pain if no improvement in the right hip), No calf pain, No muscle pain, No problem reported, No see HPI, No swelling Neurologic: No balance problems, No memory loss, No numbness/tingling, No paralysis, No problem reported, No see HPI, No vertigo, No weakness Psychiatric: No anhedonism, No anxiety, No depression symptoms, No insomnia, No problem reported, No see HPI, No substance abuse Objective Vital Signs Date Time Temp Pulse Resp B/P Pulse Ox O2 Delivery O2 Flow Rate FiO2 04/01/16 07:25 36.7 82 16 171/74 94 Room Air 04/01/16 07:24 Room Air 04/01/16 00:08 36.2 82 14 168/70 94 Room Air 04/01/16 00:00 36.2 82 14 168/70 Room Air 04/01/16 00:00 Room Air 03/31/16 23:39 79 16 145/60 94 Room Air 03/31/16 22:12 72 18 164/74 98 Room Air 03/31/16 20:45 72 03/31/16 20:37 98 Room Air 03/31/16 20:35 36.6 87 18 178/98 97 Room Air Physical Exam General Appearance: WD/WN, no apparent distress, + thin, + pertinent finding ( pleasant and conversational) Eyes: normal inspection, PERRL, EOMI, sclerae normal ENT: normal ENT inspection, hearing grossly normal, pharynx normal Neck: supple, no adenopathy, thyroid normal, no JVD, no carotid bruits, trachea midline Respiratory/Chest: chest non-tender, normal breath sounds, no respiratory distress, no accessory muscle use, + decreased breath sounds Cardiovascular: regular rate, rhythm, no edema, no gallop, no JVD, no murmur Abdomen: normal bowel sounds, non tender, soft, no organomegaly, no pulsatile mass Extremities: no pedal edema, no calf tenderness, normal capillary refill, pelvis stable, + pertinent finding (Riepe leg external rotated and shortened, pulse positive bilaterally lower exts) Neurologic/Psychiatric: scouring pads supervisor II-XII nml as tested, no motor/sensory deficits, alert, normal mood/affect, oriented x 3 Skin: normal color, warm/dry, no rash Lymphatic: no adenopathy Laboratory Results Last 24 Hours Test 03/31/16 22:25 White Blood Count 17.73 K/uL Red Blood Count 3.46 M/uL Hemoglobin 11.6 g/dL Hematocrit 34.0 % Mean Corpuscular Volume 98.3 fL Mean Corpuscular Hemoglobin 33.5 pg Mean Corpuscular Hemoglobin Concent 34.1 g/dl Platelet Count 274 K/uL Mean Platelet Volume 9.4 fL Neutrophils (%) (Auto) 86.0 % Lymphocytes (%) (Auto) 7.1 % Monocytes (%) (Auto) 5.7 % Eosinophils (%) (Auto) 0.6 % Basophils (%) (Auto) 0.2 % Neutrophils # (Auto) 15.27 K/uL Lymphocytes # (Auto) 1.25 K/uL Monocytes # (Auto) 1.01 K/uL Eosinophils # (Auto) 0.10 K/uL Basophils # (Auto) 0.03 K/uL RDW Standard Deviation 48.5 fL RDW Coefficient of Variation 13.5 % Immature Granulocyte % (Auto) 0.4 % Immature Granulocyte # (Auto) 0.07 K/uL Prothrombin Time 10.7 SECONDS Prothromb Time International Ratio 1.0 Activated Partial Thromboplast Time 23.8 SECONDS Partial Thromboplastin Ratio 0.9 Sodium Level 137 mmol/L Potassium Level 4.3 mmol/L Chloride Level 100 mmol/L Carbon Dioxide Level 26 mmol/L Anion Gap 11.0 mmol/L Blood Urea Nitrogen 41 mg/dl Creatinine 1.80 mg/dl Est Creatinine Clear Calc Drug Dose 18.5 ml/min Estimated GFR () 28.4 Estimated GFR (Non- 24.5 BUN/Creatinine Ratio 22.7 Random Glucose 110 mg/dl Calcium Level 8.9 mg/dl Total Bilirubin 0.4 mg/dl Aspartate Amino Transf (AST/SGOT) 37 U/L Alanine Aminotransferase (ALT/SGPT) 40 U/L Alkaline Phosphatase 121 U/L Total Protein 7.0 gm/dl Albumin 3.9 gm/dl Globulin 3.1 gm/dl Albumin/Globulin Ratio 1.3 Assessment and Plan 89-year-old white female admitted because of Right intertrochanteric hip fracture on 03/31/2016 Right intertrochanteric hip fracture s/p mechanical fall at home EKG and chest x-ray both been reviewed, Moderate risk of cardiopulmonary complications for the orthopedic surgery ortho is planning procedure today HTN: stable Possible acute on chronic CK D with creatinine 1.8 today Pt's baseline cr is around 1.3 Continue on gentle IVF and monitor, Hypothyroid: Continue levothyroxine In last admission she was Full code. She was very specific that she does not want prolonged attempts at resuscitation or prolonged mechanical life support. Daughter who is POA was present upon admission DVT prophylaxis will be per orthopedic service pt/ot, SW for dispo Continued [facility] stay due to: multiple IV medications needed Discharge planning: rehab hospital
[2016-04-01] MEDS ORDERED: BUPIVACAINE 0.5 % 5 MG/1 ML PF 10ML VIAL ONE (14:26)
--- NOTE | 2016-04-01 14:51 | CONSULTATION REPORT ---
DATE OF CONSULTATION: 04/01/2016 DATE OF CONSULTATION: 04/01/2016. REASON FOR CONSULT: Right hip fracture. HISTORY OF PRESENT ILLNESS: The patient is an 89-year-old white female who resides at [facility]. She apparently fell at her apartment while trying to change into her nightgown. She lost her balance and fell to the floor, had immediate right hip pain. She was brought to the Emergency Room. She was seen by the staff. X-rays were taken and it was found that she had a right intertrochanteric hip fracture. She was admitted under medicine service and we have been consulted to take care of her hip fracture. I spoke to the patient's daughter who states that she has been residing at [facility] and has been doing well on her own, has not been using any assistive device to ambulate. She has early stages of some dementia, but otherwise has been doing fine in the apartment. PAST MEDICAL HISTORY: Hypertension, CAD, hyperlipidemia, hypothyroidism, chronic kidney disease stage III, hypercholesterolemia, depression. PAST SURGICAL HISTORY: None. FAMILY HISTORY AND SOCIAL HISTORY: As per admitting history and physical. MEDICATIONS: Acetaminophen 650 mg p.o. daily, albuterol inhaler 2 puffs inhaled q. 4 hours p.r.n., aspirin 81 mg p.o. daily, atenolol 37.5 mg p.o. b.i.d., atorvastatin 10 mg p.o. daily, calcium supplement 1 tab p.o. daily, vitamin B12 1000 mcg p.o. daily, Voltaren 1 application topically daily, Colace 100 mg p.o. daily p.r.n., glucosamine unknown dose, levothyroxine 50 mcg p.o. as directed, lisinopril 2.5 mg p.o. b.i.d., nitroglycerin 0.4 mg sublingually p.r.n., nortriptyline 10 mg p.o. q.p.m., Ocuvite PreserVision 1 tab p.o. daily. ALLERGIES: AMLODIPINE, calcium channel blockers, chloramphenicol, escitalopram, felodipine, hydrochlorothiazide, levalbuterol hydrochloride, levofloxacin, levothyroxine can't take generic, terazosin. REVIEW OF SYSTEMS: As per admitting history and physical. PHYSICAL EXAMINATION: GENERAL: The patient is an elderly white female who appears her stated age who is awake and alert but confused. She is in no acute distress, pleasant at this time and answers most questions appropriately with her physical. EXTREMITIES: On examination of her right lower extremity, she has noted shortening and external rotation compared to the left lower extremity and no attempts were made to move the right hip secondary to fracture. She does have some swelling down the right lower extremity to the knee with a small effusion and when pressing on her patella she has some mild discomfort. No pain over the medial and lateral collaterals at this time of the right knee. She has some mild pain on palpation over the anterior portion of her tibia in the soft tissues, but nothing posteriorly. She is nontender in the right ankle and toes. Range of motion is intact and sensation is intact. Left lower extremity essentially within normal limits and is nontender at the left hip, knee and ankle. Upper extremities show no pain at the shoulders, elbows and wrists. She is nontender on palpation of her neck and has good range of motion of the neck at this time without discomfort. She denies any type of low back pain at this time. Neurovascular the patient is essentially confused to place and time. ASSESSMENT: Right intertrochanteric hip fracture, right knee pain, mild. PLAN: The patient has been cleared by medicine service for her impending hip surgery, which will require trochanteric femoral nailing. Risks and benefits have been explained to the patient's daughter secondary to patient being confused at this time and unable to sign her own consent. The daughter is agreeable for surgery. We will plan on getting better x-rays of her right knee which shows moderate DJD and osteophytes and a question of some fragmentation of possible osteophytes of the patella.
[2016-04-01] MEDS ORDERED: PHENYLEPHRINE HCL INJ 10 MG/ML VIAL ONE (15:18)
[2016-04-01] MEDS ORDERED: LIDOCAINE HCL 2% 2 ML VIAL (20MG/ML) ONE (15:18)
[2016-04-01] MEDS ORDERED: PROPOFOL IV EMULSION 10 MG/ML 20 ML VIAL IV ONE (15:18)
--- NOTE | 2016-04-01 15:49 | [facility] Post Operative Brief Note ---
Immediate Operative Summary Operative Date Apr 01, 2016. Pre-Operative Diagnosis intertrochanteric right hip fx. Post-Operative Diagnosis same Procedure(s) Performed troch mail right hip Surgeon Essie Third Officer Surgeon(s) Tamara Estimated Blood Loss 100cc Findings fx as above Specimens none Anesthesia spinal Complication(s) None Disposition Recovery Room / PACU
[2016-04-01] MEDS ORDERED: PHENYLEPHRINE 100MCG/ML 5ML SYR IV PRN (16:00)
--- NOTE | 2016-04-01 16:10 | DIAGNOSTIC IMAGING REPORT ---
INTRAOPERATIVE RIGHT HIP 6 VIEWS CLINICAL HISTORY: Hip fracture COMPARISON STUDY: 03/31/2016 FLUOROSCOPY TIME: 50 seconds. 6 fluoroscopic spot images were acquired.. FINDINGS: There is internal fixation of the trochanteric right hip fracture with a trochanteric nail and interlocking medullary alan IMPRESSION: Internally fixated intertrochanteric right hip fracture Electronically signed by: Mariano Paz M.D. 04/01/2016 4:09 PM Dictated Date/Time: 04/01/2016 4:08 PM
--- NOTE | 2016-04-01 16:19 | OPERATIVE REPORT ---
DATE OF OPERATION: 04/01/2016 PREOPERATIVE DIAGNOSIS: Intertrochanteric hip fracture, right hip. POSTOPERATIVE DIAGNOSIS: Intertrochanteric hip fracture, right hip. PROCEDURE: Short trochanteric nail, right hip. SURGEON: Dr. Fountain. CREDIT CARD SPECIALIST: Dmitri Mcdonald PA-C. ANESTHESIA: Spinal. COMPLICATIONS: None. DESCRIPTION OF PROCEDURE: Following induction of adequate spinal anesthesia, the patient was placed on the fracture table and the fracture was reduced using a longitudinal traction and internal rotation. The right hip was prepped and draped in usual sterile manner. An incision was made from the tip of the greater trochanter proximally. Subcutaneous tissue was sharply dissected. Electrocautery was used for hemostasis. The fascia was incised and the tip of the greater trochanter was identified. Drill-tipped guidewire was placed intramedullary light and was overdrilled using a 17 mm tapered drill. A drill tipped guidewire was placed intramedullarily again and an initial attempt inserting a 10 mm nail from the canals still to be somewhat snug, reamers were obtained and the femoral canal was reamed proximally to 11 mm in diameter. This allowed for easy passage of the nail. Proximal locking was carried out with a 90 degree helical blade and this blade was locked into position. Next, attention was turned to the distal fixation with the appropriate guide was placed. This was overdrilled and surprisingly hard cortices were encountered. The distal fixation was carried out using a 38-mm screw. Final x-rays revealed anatomic repair of the fracture. The wounds were irrigated and closed using #1 Vicryl and 2-0 Dexon and carter. Sterile dressing of Adaptic, 4x4s, ABDs and foam tape was applied. The patient tolerated the procedure well. I attest to the content of the Intraoperative Record and any orders documented therein. Any exceptio ns are noted below.
--- NOTE | 2016-04-01 16:50 | Anesthesiology Progress Note ---
Anesthesia Post Op Note Date & Time Apr 01, 2016 at 16:50 Vital Signs Pain Intensity: 0 Vital Signs Past 12 Hours Date Time Temp Pulse Resp B/P Pulse Ox O2 Delivery O2 Flow Rate FiO2 04/01/16 16:40 36.7 81 16 139/71 100 Nasal Cannula 2 04/01/16 16:30 80 16 135/58 100 Nasal Cannula 2 04/01/16 16:20 80 16 123/54 100 Nasal Cannula 2 04/01/16 16:10 87 16 171/70 100 Nasal Cannula 3 04/01/16 16:00 70 16 93/41 100 Nasal Cannula 3 04/01/16 15:50 37.2 75 16 113/67 99 Nasal Cannula 3 04/01/16 07:25 36.7 82 16 171/74 94 Room Air 04/01/16 07:24 Room Air Notes Mental Status: alert / awake / arousable, participated in evaluation Pt Amnestic to Procedure: Yes Nausea / Vomiting: adequately controlled Pain: adequately controlled Airway Patency, RR, SpO2: stable & adequate BP & HR: stable & adequate Hydration State: stable & adequate Neuraxial Anesthesia: was administered, sensory block is resolving Anesthetic Complications: no major complications apparent
--- NOTE | 2016-04-01 17:02 | DIAGNOSTIC IMAGING REPORT ---
SINGLE VIEW PELVIS; SINGLE VIEW RIGHT HIP CLINICAL HISTORY: Postoperative examination. FINDINGS: An AP portable supine view of the hips and lower pelvis with a crosstable lateral portable view of the right hip are compared to femoral radiograph dated 03/31/16. The skeletal structures are osteopenic. Intertrochanteric and intramedullary nails transfix an intertrochanteric right femoral fracture. There has been temple of near-anatomic alignment. No new fracture is seen. A single cortical lag screw transfixes the distal aspect of the intramedullary nail. There are expected postoperative changes in the overlying soft tissues including skin clips, subcutaneous gas, and soft tissue swelling. Moderate arthritic change is present in both hips. Sclerosis is noted in the pubic symphysis. IMPRESSION: 1. Expected postoperative findings status post open reduction and internal fixation of an intertrochanteric right femoral fracture. 2. No new fracture is identified. Electronically signed by: Constantino Mercado M.D. 04/01/2016 5:01 PM Dictated Date/Time: 04/01/2016 4:59 PM
[2016-04-01] MEDS: NORTRIPTYLINE HCL 10 MG CAP PO SCH (20:51)
[2016-04-02] VITALS (7 sets, daily range): BP systolic 133–152; BP diastolic 68–80; PULSE 75–83; TEMP 36.4–37.1; O2SAT 91–95
[2016-04-02] MEDS: SODIUM CHLORIDE 0.9% 1000ML 1,000 ML IV SCH (03:15)
[2016-04-02] MEDS: LEVOTHYROXINE 100 MCG TAB PO SCH (06:05)
[2016-04-02] MEDS: ACETAMINOPHEN 325 MG TAB PO PRN ×2 (06:06→21:22)
[2016-04-02 06:33] LABS: BASO % 0.3 %; BASO ABS # 0.03 K/uL (0-0.2); COMPLETE YES; EOS % 1.7 %; HEMATOCRIT 26.2 % (37-47); IG% 0.2 %; LYMPH % 11.4 %; LYMPH ABS # 1.07 K/uL (1.2-3.4); MEAN CELL VOLUME 99.2 fL (80-100); MEAN CORPUSCULAR HEMOGLOBIN 34.1 pg (25-34); MEAN CORPUSCULAR HGB CONC 34.4 g/dl (32-36); MEAN PLATELET VOLUME 9.4 fL (7.4-10.4); MONO % 10.3 %; NEUT % 76.1 %; PLATELET COUNT 207 K/uL (130-400); RED BLOOD COUNT 2.64 M/uL (4.2-5.4); WHITE BLOOD COUNT 9.39 K/uL (4.8-10.8)
[2016-04-02 07:06] LABS: CALCIUM 8.2 mg/dl (8.5-10.1); CREATININE 1.4 mg/dl (0.60-1.20); MAGNESIUM 1.8 mg/dl (1.8-2.4); POTASSIUM 4.2 mmol/L (3.5-5.1)
[2016-04-02] MEDS: DICLOFENAC SOD 1% GEL 100 GM TUBE EXT SCH (08:40)
[2016-04-02] MEDS: ACETAMINOPHEN 325 MG TAB PO SCH (08:41)
[2016-04-02] MEDS: CEROVITE ADV FORMULA TAB PO SCH (08:41)
[2016-04-02] MEDS: ATORVASTATIN 10 MG TAB PO SCH (08:41)
[2016-04-02] MEDS: CYANOCOBALAMIN 500 MCG TAB (VIT B-12) PO SCH (08:41)
[2016-04-02] MEDS: CALCIUM 600MG + VIT D 400 IU TAB PO SCH (08:41)
[2016-04-02] MEDS: POLYETHYLENE (MIRALAX) 17 GM PACK PO SCH ×2 (08:42→20:59)
--- NOTE | 2016-04-02 08:51 | Clinical Documentation Query ---
TEETEE Arriaga : CLINICAL DOCUMENTATION QUERY Patient is an 89 year old female who on 04/01 underwent trochanteric nailing of the right hip after fracture sustained in ground level fall. IM documentation 04/01 included "Possible acute on chronic CKD with creatinine 1.8 today Pt's baseline cr is around 1.3". This translates directly to acute kidney disease on chronic kidney disease. The former codes to an unspecified disorder of the kidney and the latter simply lacks specificity of severity. Estimated GFR range from 06/05 to present approximately 35-50 ml/min. Please clarify as clinically appropriate. In your clinical opinion is this patient being managed for: ( x) Acute kidney failure on CKD stage 3 ( ) Other explanation of clinical findings (Please Explain) ( ) Unable to determine (Please Define) ( ) Need to Discuss ( ) Not Agree The medical record reflects the following clinical findings, treatment, and risk factors. Clinical Indicators: As above Treatment: IVF, serial chemistries Risk Factors: Poor intake Please clarify and document your clinical opinion in the progress notes and discharge summary. Terms such as "probable", "suspected", "likely", "questionable", "possible", or "still to be ruled out" are acceptable. IF IN AGREEMENT, YOU MUST DOCUMENT ABOVE DIAGNOSTIC STATEMENT IN DAILY PROGRESS NOTES AND DISCHARGE SUMMARY. This document is not part of the patient's record. Thank You, Jayme Holliday, [place] [phone]
--- NOTE | 2016-04-02 08:56 | Clinical Documentation Query ---
TEETEE Arriaga : CLINICAL DOCUMENTATION QUERY Admission hemoglobin and hematocrit were 11.6 g/dl and 34%. POD #1, repeat values are 9.0 g/dl and 26.2%. EBL for the procedure was 100 ml's. Patient is being monitored with serial hematology and I/O. Risk factors include trauma and perioperative losses. In your clinical opinion is this patient being managed for: (x ) Acute blood loss anemia ( ) Other explanation of clinical findings (Please Explain) ( ) Unable to determine (Please Define) ( ) Need to Discuss ( ) Not Agree The medical record reflects the following clinical findings, treatment, and risk factors. Clinical Indicators: As above Treatment:Patient is being monitored with serial hematology and I/O Risk Factors:trauma and perioperative losses Please clarify and document your clinical opinion in the progress notes and discharge summary. Terms such as "probable", "suspected", "likely", "questionable", "possible", or "still to be ruled out" are acceptable. IF IN AGREEMENT, YOU MUST DOCUMENT ABOVE DIAGNOSTIC STATEMENT IN DAILY PROGRESS NOTES AND DISCHARGE SUMMARY. This document is not part of the patient's record. Thank You, Jayme Holliday, RN [phone]
--- NOTE | 2016-04-02 09:22 | Orthopedic Progress Note ---
Orthopedic Progress Note Date of Service Apr 02, 2016. Subjective Post OP Day: 1 Reports: feeling well, Denies: SOB, calf pain, chest pain, light headedness, nausea / vomiting Additional Notes: Pt sitting up eating breakfast and reading the paper. No complaints. Comfortable. States she had pain last night but is better controlled today. Objective calves soft nontender, N/V intact, dressing C/D/I, toes mobile Pt alert and pleasantly confused to an extent. Date Time Temp Pulse Resp B/P Pulse Ox O2 Delivery O2 Flow Rate FiO2 04/02/16 08:11 94 Room Air 04/02/16 08:00 37.0 76 16 134/73 94 Room Air 04/02/16 07:10 Room Air 04/02/16 03:16 37.1 76 16 133/72 94 Room Air 04/01/16 23:40 Room Air 04/01/16 23:38 36.9 78 16 134/69 91 Room Air 04/01/16 20:48 85 145/70 97 Nasal Cannula 1.0 04/01/16 20:18 37.1 79 16 128/64 100 Nasal Cannula 2.0 04/01/16 19:50 Nasal Cannula 2.0 04/01/16 19:21 37.0 79 16 146/69 99 Nasal Cannula 2.0 04/01/16 18:20 36.8 86 16 148/62 97 Nasal Cannula 2.0 04/01/16 17:37 36.5 88 16 167/70 98 Nasal Cannula 2.0 04/01/16 17:12 98 Nasal Cannula 2.0 04/01/16 17:09 36.3 87 15 155/52 97 Nasal Cannula 2.0 04/01/16 16:50 36.7 81 16 141/60 97 Nasal Cannula 2 04/01/16 16:40 36.7 81 16 139/71 100 Nasal Cannula 2 04/01/16 16:30 80 16 135/58 100 Nasal Cannula 2 04/01/16 16:20 80 16 123/54 100 Nasal Cannula 2 04/01/16 16:10 87 16 171/70 100 Nasal Cannula 3 04/01/16 16:00 70 16 93/41 100 Nasal Cannula 3 04/01/16 15:50 37.2 75 16 113/67 99 Nasal Cannula 3 Laboratory Results 24 Hours: Test 04/02/16 06:00 White Blood Count 9.39 K/uL Red Blood Count 2.64 M/uL Hemoglobin 9.0 g/dL Hematocrit 26.2 % Mean Corpuscular Volume 99.2 fL Mean Corpuscular Hemoglobin 34.1 pg Mean Corpuscular Hemoglobin Concent 34.4 g/dl Platelet Count 207 K/uL Mean Platelet Volume 9.4 fL Neutrophils (%) (Auto) 76.1 % Lymphocytes (%) (Auto) 11.4 % Monocytes (%) (Auto) 10.3 % Eosinophils (%) (Auto) 1.7 % Basophils (%) (Auto) 0.3 % Neutrophils # (Auto) 7.14 K/uL Lymphocytes # (Auto) 1.07 K/uL Monocytes # (Auto) 0.97 K/uL Eosinophils # (Auto) 0.16 K/uL Basophils # (Auto) 0.03 K/uL Assessment & Plan Assessment: POD 1 s/p Right TFN Acute Blood Loss Anemia CKD lll (1) Benign hypertension Status: Chronic (2) Coronary artery disease Status: Chronic (3) Hyperlipidemia Status: Chronic (4) Hypothyroidism Status: Chronic (5) Urinary incontinence Plan: PT/OT TTWB Follow H/H for now BUN/Creat improving Inhouse Planning Pain Management: Morphine, PO Tylenol DVT Prophylaxis: TEDs, SCDs, Lovenox Discharge Planning Discharge Planning: [facility] facility
[2016-04-02] MEDS ORDERED: PANTOprazole SOD 40 MG TAB PO STA (13:44)
[2016-04-02] MEDS: ENOXAPARIN 30 MG/0.3 ML SYR SQ SCH (16:25)
--- NOTE | 2016-04-02 18:02 | Progress Note ---
Subjective Date of Service: Apr 02, 2016. Subjective Pt evaluation today including: conversation w/ patient, physical exam, chart review, lab review, review of inpatient medication list Pain: right hip with mild pain only PO Intake: per staff normal Voiding: bedolla catheter in place per staff occasional delirium/confusion during my visit she was awake, alert, and oriented c/o "spit/mucous" that she has to "spit up" -- this is an issue she has at home nursing staff report frequent belching Problem List Medical Problems: (1) Blurred vision, bilateral Status: Acute (2) Hypertensive urgency Status: Acute (3) Intertrochanteric fracture of right hip Status: Acute (4) Left leg weakness Status: Acute (5) Near syncope Status: Acute (6) Pancreatitis Status: Acute (7) Renal insufficiency Status: Acute Review of Systems Constitutional: No fever Respiratory: No shortness of breath Cardiac: No chest pain Abdomen: + problem reported (no bowel movement yet but +flatus), No pain Objective Vital Signs Date Time Temp Pulse Resp B/P Pulse Ox O2 Delivery O2 Flow Rate FiO2 04/02/16 16:14 Room Air 04/02/16 15:02 36.4 75 16 134/68 95 Room Air 04/02/16 11:09 36.7 78 17 139/69 94 Room Air 04/02/16 08:11 94 Room Air 04/02/16 08:00 37.0 76 16 134/73 94 Room Air 04/02/16 07:10 Room Air 04/02/16 03:16 37.1 76 16 133/72 94 Room Air 04/01/16 23:40 Room Air 04/01/16 23:38 36.9 78 16 134/69 91 Room Air 04/01/16 20:48 85 145/70 97 Nasal Cannula 1.0 04/01/16 20:18 37.1 79 16 128/64 100 Nasal Cannula 2.0 04/01/16 19:50 Nasal Cannula 2.0 04/01/16 19:21 37.0 79 16 146/69 99 Nasal Cannula 2.0 04/01/16 18:20 36.8 86 16 148/62 97 Nasal Cannula 2.0 Physical Exam General Appearance: no apparent distress ENT: pharynx normal Neck: no JVD Respiratory/Chest: lungs clear, no respiratory distress, no accessory muscle use Cardiovascular: regular rate, rhythm, no gallop, no murmur Abdomen: normal bowel sounds, non tender, soft, no organomegaly Extremities: no pedal edema, + swelling (right thigh only; dressings intact right lateral hip) Neurologic/Psychiatric: alert, oriented x 3 Laboratory Results Last 24 Hours Test 04/02/16 06:00 White Blood Count 9.39 K/uL Red Blood Count 2.64 M/uL Hemoglobin 9.0 g/dL Hematocrit 26.2 % Mean Corpuscular Volume 99.2 fL Mean Corpuscular Hemoglobin 34.1 pg Mean Corpuscular Hemoglobin Concent 34.4 g/dl Platelet Count 207 K/uL Mean Platelet Volume 9.4 fL Neutrophils (%) (Auto) 76.1 % Lymphocytes (%) (Auto) 11.4 % Monocytes (%) (Auto) 10.3 % Eosinophils (%) (Auto) 1.7 % Basophils (%) (Auto) 0.3 % Neutrophils # (Auto) 7.14 K/uL Lymphocytes # (Auto) 1.07 K/uL Monocytes # (Auto) 0.97 K/uL Eosinophils # (Auto) 0.16 K/uL Basophils # (Auto) 0.03 K/uL RDW Standard Deviation 49.8 fL RDW Coefficient of Variation 13.8 % Immature Granulocyte % (Auto) 0.2 % Immature Granulocyte # (Auto) 0.02 K/uL Sodium Level 136 mmol/L Potassium Level 4.2 mmol/L Chloride Level 104 mmol/L Carbon Dioxide Level 23 mmol/L Anion Gap 9.0 mmol/L Blood Urea Nitrogen 24 mg/dl Creatinine 1.40 mg/dl Est Creatinine Clear Calc Drug Dose 23.8 ml/min Estimated GFR () 38.5 Estimated GFR (Non- 33.2 BUN/Creatinine Ratio 17.0 Random Glucose 102 mg/dl Calcium Level 8.2 mg/dl Magnesium Level 1.8 mg/dl Assessment and Plan 89yo female with: 1. s/p fall with resulting right hip fracture, POD #1 ORIF - doing well from ortho standpoint. Lovenox for DVT proph. 2. acute blood loss anemia - mild, Hb 9 today; repeat CBC am. Iron supplementation. 3. hypothyroidism - TSH 12/2015 wnl; cont current synthroid dose. 4. CAD - no ischemic symptoms at this time. 5. frequent belching, chronic mucous - could be GERD; add PPI. 6. HTN - controlled; cont outpatient medications. 7. acute kidney injury in setting of CKD stage 4 - creatinine improved today. BMP in am for stability. 8. d/c bedolla 9. constipation - miralax 10. encephalopathy in setting of ?dementia - former improved. Likely hospital psychosis. No signs of infectious process, etc. 11. PT, OT saadia cardoso - [facility], skilled unit - likely early this coming week Continued [facility] stay due to: ambulation difficulties, home environment unsafe for pt Discharge planning: assisted facility
[2016-04-02] MEDS: NORTRIPTYLINE HCL 10 MG CAP PO SCH (21:00)
[2016-04-03] MEDS: LEVOTHYROXINE 75 MCG TAB PO SCH (05:53)
[2016-04-03 07:50] LABS: HEMATOCRIT 23.6 % (37-47); MEAN CELL VOLUME 97.9 fL (80-100); MEAN CORPUSCULAR HGB CONC 34.7 g/dl (32-36); MEAN PLATELET VOLUME 9.4 fL (7.4-10.4); PLATELET COUNT 176 K/uL (130-400); RED BLOOD COUNT 2.41 M/uL (4.2-5.4)
[2016-04-03 08:01] VITALS: BP 142/56; PULSE 76; TEMP 36.7; O2SAT 93
[2016-04-03 08:08] VITALS: O2SAT 93
[2016-04-03 08:22] LABS: BUN/CREATININE RATIO 18.5 (10-20); CALCIUM 8.4 mg/dl (8.5-10.1); CREATININE 1.3 mg/dl (0.60-1.20); POTASSIUM 4.2 mmol/L (3.5-5.1)
[2016-04-03] MEDS: DICLOFENAC SOD 1% GEL 100 GM TUBE EXT SCH ×2 (08:42→10:35)
[2016-04-03] MEDS: CALCIUM 600MG + VIT D 400 IU TAB PO SCH (08:59)
[2016-04-03] MEDS: POLYETHYLENE (MIRALAX) 17 GM PACK PO SCH ×2 (09:02→21:03)
[2016-04-03] MEDS: ATORVASTATIN 10 MG TAB PO SCH (09:03)
[2016-04-03] MEDS: CEROVITE ADV FORMULA TAB PO SCH (09:05)
[2016-04-03] MEDS: ACETAMINOPHEN 325 MG TAB PO SCH (09:16)
[2016-04-03] MEDS: CYANOCOBALAMIN 500 MCG TAB (VIT B-12) PO SCH (09:17)
--- NOTE | 2016-04-03 10:21 | Orthopedic Progress Note ---
Orthopedic Progress Note Date of Service Apr 03, 2016. Subjective Post OP Day: 2 Reports: feeling well, pain controlled w PO medications, Denies: SOB, calf pain , chest pain, complaints, light headedness, nausea / vomiting Objective calves soft nontender, N/V intact, capillary refill less than 2 sec., incision C /D/I, toes mobile Mildly confused but improves with discussion. Date Time Temp Pulse Resp B/P Pulse Ox O2 Delivery O2 Flow Rate FiO2 04/03/16 08:08 93 Room Air 04/03/16 08:01 36.7 76 20 142/56 93 Room Air 04/03/16 07:30 Room Air 04/02/16 23:35 Room Air 04/02/16 23:06 37.1 76 17 152/80 91 Room Air 04/02/16 21:14 83 151/71 04/02/16 16:14 Room Air 04/02/16 15:02 36.4 75 16 134/68 95 Room Air 04/02/16 11:09 36.7 78 17 139/69 94 Room Air Laboratory Results 24 Hours: Test 04/03/16 06:35 Hematocrit 23.6 % Hemoglobin 8.2 g/dL Assessment & Plan Assessment: POD 2 s/p Right TFN Acute Blood Loss Anemia CKD lll (1) Benign hypertension Status: Chronic (2) Coronary artery disease Status: Chronic (3) Hyperlipidemia Status: Chronic (4) Hypothyroidism Status: Chronic (5) Urinary incontinence Plan: PT/OT TTWB Follow H/H for now, Hgb 8.2 this AM, as per medicine BUN/Creat improving Disposition SNF as per SS Inhouse Planning Pain Management: Morphine, PO Tylenol DVT Prophylaxis: TEDs, SCDs, Lovenox Discharge Planning Discharge Planning: longterm facility
[2016-04-03 11:40] VITALS: BP 152/72; PULSE 74; TEMP 36.4; O2SAT 95
--- NOTE | 2016-04-03 13:43 | PROGRESS NOTE ---
DATE: 04/03/2016 DATE: 04/03/2016. HISTORY OF PRESENT ILLNESS: Mrs. Tinsley is a very pleasant 89-year-old white female with a history of CAD, hypertension, CKD, and possible GERD, who presented acutely on 03/31/2016 with a right hip intertrochanteric fracture. She developed an acute blood loss anemia. The patient subsequently underwent a right hip ORIF on 04/01/2016. The patient is currently being seen in room 386 bed 1, and offers no complaints. Her hip is still slightly sore. She denies any chest pain, heaviness, tightness, or pressure. No shortness of breath, dyspnea on exertion, orthopnea, or PND. No palpitations or syncope. She does admit to occasional lightheadedness as well as vertigo. Her renal function appears to be improving despite a worsening anemia. Her current hemoglobin is 8.2 grams per deciliter but she appears to be well perfused. Her belching has improved with the addition of a proton pump inhibitor. PHYSICAL EXAMINATION: VITAL SIGNS: Temperature is 36.4 degree Celsius, pulse is 74 and regular, respiratory rate 14 and unlabored. Blood pressure is 150/72, SPO2 is 95% on room air. GENERAL: The patient in no acute distress. HEAD, EYES, EARS, NOSE, AND THROAT: Head is atraumatic, normocephalic. EOMs intact. Sclerae are anicteric. Facies symmetric. No perioral cyanosis. Mucous membranes moist. NECK: Without JVD. CHEST AND LUNGS: Clear to auscultation throughout all lung schroeder, no wheezes, rales or rhonchi. CARDIOVASCULAR: S1 and S2 are regular without murmur, gallop or rub. PMI is nondisplaced. No lifts, heaves, or thrills. ABDOMINAL EXAMINATION: Bowel sounds present. No masses, organomegaly or tenderness. EXTREMITIES: No edema. Right hip is dressed. NEUROLOGIC EXAMINATION: The patient is alert and interactive. Answers questions appropriately for the most part. Occasionally has tangential topics of conversation. Speech is clear. She is hard of hearing. LABORATORY DATA: White blood cell count is 8.70. Hemoglobin is 8.2 g/dL, hematocrit 23.6%, platelet count 176,000. Sodium is 139 mmol/L, potassium 4.2 mmol/L, BUN 24 mg/dL. Creatinine 1.30 mg/dL. Random glucose 98 mg/dL. Vitamin B12 level is normal at 516 pg/mL. ASSESSMENT: 1. Right hip fracture status post open reduction and internal fixation. 2. Acute blood loss anemia, current hemoglobin 8.2 grams per deciliter. 3. Acute on chronic renal insufficiency, gradually improving. 4. Hypertension, reasonably well controlled. 5. Coronary artery disease -- asymptomatic. 6. Probable gastroesophageal reflux disease, less belching on PPI. 7. Intermittent delirium, probably due to her age, postoperative state, strange environment, and she does have some baseline confusion. PLAN: 1. The patient is doing well. Her hip pain is controlled. 2. She is aware of her acute blood loss anemia. Despite having a hemoglobin down to 8.2 grams per deciliter. She is perfusing well, renal function is improving, and she has not had any evidence of hypotension. Continue to monitor daily H&H. Consider transfusion if hemoglobin drops below 8.0 g/dL. 3. Continue Lovenox for deep venous thrombosis prophylaxis. 4. Continue Lipitor 10 mg each evening. 5. Continue IV hydralazine as needed. 6. Continue atenolol 37.5 mg b.i.d. 7. Continue thyroid supplementation. 8. Ongoing pain management as per orthopedics. 9. Continue physical therapy and occupational therapy. 10. The patient will most likely be discharged to [facility] in the early part of the week. 11. We will continue to follow. JOY
[2016-04-03 15:09] VITALS: BP 150/68; PULSE 72; TEMP 36.4; O2SAT 93
[2016-04-03] MEDS: ENOXAPARIN 30 MG/0.3 ML SYR SQ SCH (16:09)
[2016-04-03 18:21] VITALS: BP 128/69; PULSE 74; TEMP 37.1; O2SAT 97
[2016-04-03] MEDS: NORTRIPTYLINE HCL 10 MG CAP PO SCH (21:03)
[2016-04-03 23:20] VITALS: BP 158/77; PULSE 75; TEMP 36.8; O2SAT 96
[2016-04-04] VITALS (10 sets, daily range): BP systolic 108–172; BP diastolic 61–75; PULSE 69–80; TEMP 36.3–37.2; O2SAT 94–98
[2016-04-04 05:36] LABS: HEMATOCRIT 23.1 % (37-47); MEAN CELL VOLUME 99.1 fL (80-100); MEAN CORPUSCULAR HEMOGLOBIN 33.9 pg (25-34); MEAN CORPUSCULAR HGB CONC 34.2 g/dl (32-36); MEAN PLATELET VOLUME 9.1 fL (7.4-10.4); PLATELET COUNT 191 K/uL (130-400); RED BLOOD COUNT 2.33 M/uL (4.2-5.4); WHITE BLOOD COUNT 9.75 K/uL (4.8-10.8)
[2016-04-04] MEDS: LEVOTHYROXINE 75 MCG TAB PO SCH (06:07)
[2016-04-04 06:12] LABS: CREATININE 1.4 mg/dl (0.60-1.20)
--- NOTE | 2016-04-04 08:26 | Orthopedic Progress Note ---
Orthopedic Progress Note Date of Service Apr 04, 2016. Subjective Post OP Day: 3 Reports: feeling well, pain controlled w PO medications, Denies: SOB, calf pain , chest pain, complaints, light headedness, nausea / vomiting Objective calves soft nontender, N/V intact, capillary refill less than 2 sec., incision C /D/I, toes mobile Incision no erythema, no drainage. Date Time Temp Pulse Resp B/P Pulse Ox O2 Delivery O2 Flow Rate FiO2 04/04/16 07:35 36.7 75 18 138/69 94 Room Air 04/04/16 03:30 156/69 04/04/16 00:00 Room Air 04/03/16 23:20 36.8 75 14 158/77 96 Room Air 04/03/16 18:33 Room Air 04/03/16 18:21 37.1 74 16 128/69 97 Room Air 04/03/16 15:09 36.4 72 20 150/68 93 Room Air 04/03/16 11:40 36.4 74 20 152/72 95 Room Air Laboratory Results 24 Hours: Test 04/04/16 05:22 Hematocrit 23.1 % Hemoglobin 7.9 g/dL Assessment & Plan Assessment: POD 3 s/p Right TFN Acute Blood Loss Anemia CKD lll (1) Benign hypertension Status: Chronic (2) Coronary artery disease Status: Chronic (3) Hyperlipidemia Status: Chronic (4) Hypothyroidism Status: Chronic (5) Urinary incontinence Plan: PT/OT TTWB Follow H/H for now, Hgb 7.9 this AM, transfusion ordered per medicine. BUN/Creat improving Disposition SNF as per SS/ primary team Continue daily dressing changes to rt hip until follow up with Dr. Fountain. Orthopedics will sign off a this point, reconsult as needed, Thank you. Follow up with Dr. Fountain at [facility] 12-14 days post op, call [phone] to make appt. Inhouse Planning Pain Management: Morphine, PO Tylenol DVT Prophylaxis: TEDs, SCDs, Lovenox Discharge Planning Discharge Planning: senior care facility
[2016-04-04] MEDS: ATORVASTATIN 10 MG TAB PO SCH (08:57)
[2016-04-04] MEDS: CYANOCOBALAMIN 500 MCG TAB (VIT B-12) PO SCH (08:58)
[2016-04-04] MEDS: CEROVITE ADV FORMULA TAB PO SCH (08:58)
[2016-04-04] MEDS: ACETAMINOPHEN 325 MG TAB PO SCH (08:58)
[2016-04-04] MEDS: POLYETHYLENE (MIRALAX) 17 GM PACK PO SCH ×2 (08:58→16:28)
[2016-04-04] MEDS: DICLOFENAC SOD 1% GEL 100 GM TUBE EXT SCH (08:59)
[2016-04-04] MEDS: CALCIUM 600MG + VIT D 400 IU TAB PO SCH (09:00)
--- NOTE | 2016-04-04 13:47 | Progress Note ---
Subjective Date of Service: Apr 04, 2016. Subjective pt reamins pleasant and slightly confused, no new issues Problem List Medical Problems: (1) Blurred vision, bilateral Status: Acute (2) Hypertensive urgency Status: Acute (3) Intertrochanteric fracture of right hip Status: Acute (4) Left leg weakness Status: Acute (5) Near syncope Status: Acute (6) Pancreatitis Status: Acute (7) Renal insufficiency Status: Acute Review of Systems Constitutional: No chills, No fever Respiratory: No cough, No sputum Cardiac: No chest pain, No orthopnea Abdomen: No nausea, No pain Musculoskeletal: No joint pain, No muscle pain Female : No dysuria, No urinary frequency Psychiatric: No anhedonism, No depression symptoms Objective Vital Signs Date Time Temp Pulse Resp B/P Pulse Ox O2 Delivery O2 Flow Rate FiO2 04/04/16 07:35 36.7 75 18 138/69 94 Room Air 04/04/16 07:30 Room Air 04/04/16 03:30 156/69 04/04/16 00:00 Room Air 04/03/16 23:20 36.8 75 14 158/77 96 Room Air 04/03/16 18:33 Room Air 04/03/16 18:21 37.1 74 16 128/69 97 Room Air 04/03/16 15:09 36.4 72 20 150/68 93 Room Air 04/03/16 11:40 36.4 74 20 152/72 95 Room Air Physical Exam General Appearance: WD/WN, + mild distress Neck: supple, no JVD Respiratory/Chest: chest non-tender, lungs clear, normal breath sounds Cardiovascular: regular rate, rhythm, no murmur Abdomen: normal bowel sounds, non tender, soft Extremities: no pedal edema, no calf tenderness Neurologic/Psychiatric: alert, oriented x 3 Laboratory Results Last 24 Hours Test 04/04/16 05:22 White Blood Count 9.75 K/uL Red Blood Count 2.33 M/uL Hemoglobin 7.9 g/dL Hematocrit 23.1 % Mean Corpuscular Volume 99.1 fL Mean Corpuscular Hemoglobin 33.9 pg Mean Corpuscular Hemoglobin Concent 34.2 g/dl RDW Standard Deviation 50.9 fL RDW Coefficient of Variation 14.1 % Platelet Count 191 K/uL Mean Platelet Volume 9.1 fL Creatinine 1.40 mg/dl Est Creatinine Clear Calc Drug Dose 23.8 ml/min Estimated GFR () 38.5 Estimated GFR (Non- 33.2 Assessment and Plan 89 F s/p Right hip fracture status post open reduction and internal fixation. Acute blood loss anemia, current hemoglobin 8.2 grams per deciliter. Acute on chronic renal insufficiency, Hypertension/Coronary artery disease restart asprin when able, continue atenolol , lipitor Intermittent delirium, Lovenox for deep venous thrombosis prophylaxis. mild confusion will check ua PT/OT return to [facility] for subacute rehab. Continued [facility] stay due to: ambulation difficulties, home environment unsafe for pt Discharge planning: snf facility
[2016-04-04] MEDS: ENOXAPARIN 30 MG/0.3 ML SYR SQ SCH (16:28)
[2016-04-04] MEDS: NORTRIPTYLINE HCL 10 MG CAP PO SCH (20:48)
[2016-04-05 00:05] VITALS: BP 151/71; PULSE 70; TEMP 36.9; O2SAT 94
[2016-04-05] MEDS: LEVOTHYROXINE 100 MCG TAB PO SCH (05:50)
[2016-04-05 07:31] VITALS: BP 174/75; PULSE 77; TEMP 36.9; O2SAT 94
[2016-04-05] MEDS: DICLOFENAC SOD 1% GEL 100 GM TUBE EXT SCH (08:14)
[2016-04-05] MEDS: POLYETHYLENE (MIRALAX) 17 GM PACK PO SCH ×2 (08:38→17:00)
[2016-04-05] MEDS: CALCIUM 600MG + VIT D 400 IU TAB PO SCH (08:39)
[2016-04-05] MEDS: CYANOCOBALAMIN 500 MCG TAB (VIT B-12) PO SCH (08:39)
[2016-04-05] MEDS: ACETAMINOPHEN 325 MG TAB PO SCH (08:39)
[2016-04-05] MEDS: ATORVASTATIN 10 MG TAB PO SCH (08:39)
[2016-04-05] MEDS: CEROVITE ADV FORMULA TAB PO SCH (08:39)
[2016-04-05 09:34] VITALS: BP 168/72; PULSE 80; O2SAT 95
[2016-04-05 10:07] LABS: HEMATOCRIT 27.3 % (37-47)
[2016-04-05] MEDS ORDERED: LISINOPRIL 2.5 MG TAB PO ONE (12:24)
[2016-04-05 12:35] VITALS: BP 174/73; PULSE 78; TEMP 36.4; O2SAT 95
[2016-04-05] MEDS ORDERED: MRLP17 PO (12:38)
[2016-04-05] MEDS ORDERED: TYL325X PO (12:38)
[2016-04-05] MEDS ORDERED: LVNIS30 SQ (12:38)
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
[2016-04-05 15:13] VITALS: BP 176/81; PULSE 81; TEMP 36.5; O2SAT 97
[2016-04-05] MEDS: ENOXAPARIN 30 MG/0.3 ML SYR SQ SCH (16:02)
[2016-04-05 16:49] VITALS: BP 176/81; PULSE 81; TEMP 36.5; O2SAT 97
[2016-04-05] MEDS ORDERED: LISINOPRIL 2.5 MG TAB PO SCH (21:00)
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
== END 2016-04-05 17:20 | DRG 481 ==
LOC: ENRESERVDT → ENRESERVTM → EDBD 20:33 → C.EDA 20:36 → C.MSN 23:32
PROVIDERS: ADMIT Hospitalist; ATTEND Internal Medicine
PROC: 0QS604Z Reposition Right Upper Femur with Internal Fixation Device, Open Approach (ICD-10-PCS; principal; 2016-04-01 14:30)
DX: S72.141A Displaced intertrochanteric fracture of right femur, initial encounter for closed fracture (principal); D62 Acute posthemorrhagic anemia; N18.4 Chronic kidney disease, stage 4 (severe); N17.9 Acute kidney failure, unspecified; F05 Delirium due to known physiological condition; E03.9 Hypothyroidism, unspecified; F32.9 Major depressive disorder, single episode, unspecified; E78.00 Pure hypercholesterolemia, unspecified; I25.10 Atherosclerotic heart disease of native coronary artery without angina pectoris; R32 Unspecified urinary incontinence; F41.9 Anxiety disorder, unspecified; G43.909 Migraine, unspecified, not intractable, without status migrainosus; M19.90 Unspecified osteoarthritis, unspecified site; G47.00 Insomnia, unspecified; K21.9 Gastro-esophageal reflux disease without esophagitis; K59.00 Constipation, unspecified; I12.9 Hypertensive chronic kidney disease with stage 1 through stage 4 chronic kidney disease, or unspecified chronic kidney disease; E53.8 Deficiency of other specified B group vitamins; H91.90 Unspecified hearing loss, unspecified ear; Y92.003 Bedroom of unspecified non-institutional (private) residence as the place of occurrence of the external cause; W19.XXXA Unspecified fall, initial encounter; Z87.820 Personal history of traumatic brain injury; Z79.82 Long term (current) use of aspirin; Z79.1 Long term (current) use of non-steroidal anti-inflammatories (NSAID)

== ENCOUNTER → 2016-05-07 | Outpatient (CLI) | payer OTHER, MEDICARE ==
[~2016-05-07] MED LIST changes: +AMOX875T PO; -ASPCH81 PO; +ASPI81TA28 PO; +ATEN-173 PO; -CALC-20 PO; +CALC-55 PO; +GLUC500C4; +LEVO100T7 PO; +LEVO75TA5 PO; +LVNIS30 SQ; +MRLP17 PO; +MRLP17X PO; -POLY1POW2 PO; +TYL325X PO; +VLTG TOP; +VNTHFA/IN INH
[2016-05-07 15:44] LABS: BASO % 0.2 %; BASO ABS # 0.01 K/uL (0-0.2); COMPLETE YES; EOS % 0.4 %; HEMATOCRIT 35.5 % (37-47); IG% 0.2 %; LYMPH % 27.6 %; LYMPH ABS # 1.46 K/uL (1.2-3.4); MEAN CELL VOLUME 98.9 fL (80-100); MEAN CORPUSCULAR HGB CONC 34.4 g/dl (32-36); MEAN PLATELET VOLUME 9.5 fL (7.4-10.4); MONO % 11.3 %; NEUT % 60.3 %; PLATELET COUNT 252 K/uL (130-400); RED BLOOD COUNT 3.59 M/uL (4.2-5.4); WHITE BLOOD COUNT 5.29 K/uL (4.8-10.8)
[2016-05-07 15:47] LABS: URINE APPEARANCE CLEAR (CLEAR); URINE BILIRUBIN NEG (NEG); URINE COLOR YELLOW; URINE EPITHELIAL CELL AUTO >30 /lpf (0-5); URINE NITRITE NEG (NEG); URINE SPECIFIC GRAVITY 1.013 (1.000-1.030); UROBILINOGEN NEG (NEG)
[2016-05-07 15:49] LABS: MANUAL MICROSCOPIC REQUIRED? NO; REVIEW REQ? NO
--- NOTE | 2016-05-07 15:53 | DIAGNOSTIC IMAGING REPORT ---
SINUSES MIN 3 VIEWS ROUTINE CLINICAL HISTORY: Cerumen impaction. COMPARISON STUDY: Head CT 01/13/2016. FINDINGS: The paranasal sinuses and mastoid air cells are clear. The nasal septum is essentially midline. No fluid levels within the paranasal sinuses. IMPRESSION: The paranasal sinuses and mastoid air cells are clear. Electronically signed by: Sonny Bardales M.D. 05/07/2016 3:52 PM Dictated Date/Time: 05/07/2016 3:49 PM
--- NOTE | 2016-05-07 15:55 | DIAGNOSTIC IMAGING REPORT ---
CHEST 2 VIEWS ROUTINE HISTORY: Cerumen impaction. COMPARISON: Chest 03/31/2016. FINDINGS: Left basilar linear densities remain unchanged. This favors subsegmental atelectasis. No new focal lung consolidations. No evidence for pulmonary edema. No pleural effusions. No pneumothorax. The heart is top normal in size. Mild anterior wedging within the T11 vertebral body is likely old. IMPRESSION: No significant change compared to the prior study. No acute process. Stable left basilar subsegmental atelectasis. Electronically signed by: Sonny Bardales M.D. 05/07/2016 3:53 PM Dictated Date/Time: 05/07/2016 3:52 PM
[2016-05-07 16:09] LABS: ALT/SGPT 53 U/L (12-78); AST/SGOT 49 U/L (15-37); BLOOD UREA NITROGEN 22 mg/dl (7-18); BUN/CREATININE RATIO 16.8 (10-20); CARBON DIOXIDE 28 mmol/L (21-32); CHLORIDE 95 mmol/L (98-107); GLUCOSE 120 mg/dl (70-99); POTASSIUM 4.5 mmol/L (3.5-5.1); SODIUM 131 mmol/L (136-145)
[2016-05-07 16:20] LABS: ALB/GLOB RATIO 1.2 (0.9-2); ALKALINE PHOSPHATASE 243 U/L (45-117)
== END | disposition home or self-care (01) ==
LOC: C.RAD 14:44
PROVIDERS: ATTEND Internal Medicine Pulmonary Disease
DX: H61.20 Impacted cerumen, unspecified ear (principal); E03.9 Hypothyroidism, unspecified

== ENCOUNTER 2016-05-11 15:24 | Inpatient (IN) | payer OTHER, MEDICARE ==
[~2016-05-11] VITALS: Ht 154.9 cm; Wt 62.5 kg
[~2016-05-11 15:24] MED LIST changes: -AMOX875T PO; -ATEN-173 PO; -LEVO100T7 PO; -LEVO75TA5 PO; -MRLP17X PO
[2016-05-11] MEDS ORDERED: SODIUM CHLORIDE 0.9% 1000ML 500 ML IV STA (16:29)
[2016-05-11] MEDS ORDERED: ATEN-173 PO (16:57)
[2016-05-11] MEDS ORDERED: ACET-1311 PO (16:57)
[2016-05-11] MEDS ORDERED: MRLP17X PO (16:57)
[2016-05-11] MEDS ORDERED: AMOX875T PO (16:57)
[2016-05-11] MEDS ORDERED: LEVO75TA5 PO (16:57)
[2016-05-11] MEDS ORDERED: LEVO100T7 PO (16:57)
--- NOTE | 2016-05-11 17:00 | DIAGNOSTIC IMAGING REPORT ---
CHEST ONE VIEW PORTABLE CLINICAL HISTORY: Altered mental status. Weakness. COMPARISON STUDY: 05/07/2016 FINDINGS: The heart is borderline enlarged. There is no failure. There is no lobar consolidation. There are stable left basilar atelectatic changes.[ IMPRESSION: Stable left basilar opacities, likely atelectatic. No acute findings. Electronically signed by: Mariano Paz M.D. 05/11/2016 4:59 PM Dictated Date/Time: 05/11/2016 4:58 PM
--- NOTE | 2016-05-11 17:03 | EMERGENCY ROOM VISIT NOTE ---
History Report prepared by Rona: Camilla Ahuja Under the Supervision of: Dr. Constantino Gordon M.D. First contact with patient: 16:25 Chief Complaint: CONFUSION Stated Complaint: CONFUSION, UTI Nursing Triage Summary: sent from [facility] with increased confusion, daughter states pcp wants her evaluated she has a uti, on abx since tuesday, remains confused History of Present Illness The patient is a 89 year old female who presents to the Emergency Room from [facility] with complaints of worsened confusion starting a few days ago. As per daughter, the patient had blood work 4 days ago and she was diagnosed with a UTI. She was started on Amoxicillin 4 days ago. Her confusion started a few days prior to having the blood work done. Her confusion has not improved. As per daughter, the patient has short term memory loss which has worsened. She has been confused about the activities that she is supposed to do and not supposed to do. The patient currently complains of nausea. She denies any headache, chest pain, shortness of breath, or any other complaints. Source of History: patient Onset: a few days ago Position: other (global) Quality: other (confusion) Timing: other (worsened) Associated Symptoms: + nausea, No SOB, No chest pain, No headache Review of Systems See HPI for pertinent positives & negatives. A total of 10 systems reviewed and were otherwise negative. Past Medical & Surgical Medical Problems: (1) Benign hypertension (2) Coronary artery disease (3) Elevated BP (4) Hyperlipidemia (5) Hypothyroidism (6) Patellar fracture (7) Urinary incontinence Surgical Problems: (1) History of arthroscopic knee surgery (2) History of bilateral cataract extraction (3) History of bladder surgery (4) History of hernia repair Family History Lung disease Social History Smoking Status: Never Smoker Alcohol Use: none Drug Use: none Marital Status: Housing Status: unknown Occupation Status: unemployed Current/Historical Medications Scheduled Acetaminophen (Tylenol), 650 MG PO DAILY Amoxicillin & Pot Clavulanate (Augmentin 875-125 mg), 1 TAB PO BID Aspirin (Aspirin Ec), 81 MG PO DAILY Atenolol (Tenormin), 37.5 MG PO DAILY Atorvastatin (Atorvastatin Calcium), 10 MG PO DAILY Calcium Carbonate-Vitamin D (Sm Calcium 500/Vitamin D3), 1 TAB PO DAILY Cyanocobalamin (Vitamin B-12), 1,000 MCG PO DAILY Diclofenac Sod (Voltaren), 1 APPLN TOP HS Levothyroxine Sodium (Levothyroxine Sodium), 75 MG PO 4XWK Levothyroxine Sodium (Levothyroxine Sodium), 100 MCG PO 3XWK Lisinopril (Lisinopril), 2.5 MG PO BID Nitroglycerin (Nitrostat), 0.4 MG UT PRN Nortriptyline HCl (Nortriptyline HCl), 10 MG PO QPM Ocuvite Preservision (Ocuvite Preservision), 1 TAB PO DAILY Scheduled PRN Acetaminophen (Tylenol), 650 MG PO Q4H PRN for Pain or Fever Polyethylene (Miralax), 17 GM PO BID PRN for Constipation Allergies Coded Allergies: Quinolones (Verified Allergy, Intermediate, , 05/11/16) Calcium Channel Blockers (Verified Allergy, Mild, 05/11/16) Felodipine (Verified Allergy, Mild, 05/11/16) Amlodipine (Verified Allergy, Unknown, UNKN, 05/11/16) Chloramphenicol (Verified Allergy, Unknown, UNKN, 05/11/16) Escitalopram (Verified Allergy, Unknown, UNKN, 05/11/16) Hydrochlorothiazide (Verified Allergy, Unknown, ., 05/11/16) Levalbuterol Hydrochloride (Verified Allergy, Unknown, UNKN, 05/11/16) Levofloxacin (Verified Allergy, Unknown, UNKN, 05/11/16) Levothyroxine (Verified Allergy, Unknown, UNKNOWN(CAN'T TAKE GENERIC, BRAND SYNTHROID IS OK), 05/11/16) Terazosin (Verified Allergy, Unknown, UNKN, 05/11/16) Physical Exam Vital Signs Date Time Temp Pulse Resp B/P Pulse Ox O2 Delivery O2 Flow Rate FiO2 05/11/16 18:49 67 18 161/83 98 Room Air 05/11/16 17:45 75 05/11/16 17:21 74 18 201/83 98 Room Air 05/11/16 15:29 37.0 77 18 202/96 99 Room Air Physical Exam GENERAL: Patient is in no acute distress. HEENT: No acute trauma, normocephalic atraumatic, mucous membranes moist, no nasal congestion, no scleral icterus. NECK: No stridor, no adenopathy, no meningismus, trachea is midline. LUNGS: Clear to auscultation bilaterally, no wheeze, no rhonchi, breath sounds equal. HEART: Without murmurs gallops or rubs, regular rate and rhythm. ABDOMEN: Soft, nontender, bowel sounds positive, no hernias, no peritonitis. EXTREMITIES: Left greater than right pedal edema, no cellulitis, full range of motion of all the joints without pain or difficulty, no signs for acute trauma. NEUROLOGIC: Oriented x 3, no acute motor or sensory deficits, no focal weakness. SKIN: No rash, no jaundice, no diaphoresis. Medical Decision & Procedures ER Provider Diagnostic Interpretation: X ray results and stated below per my interpretation and radiologist interpretation. CT results and stated below per my review and radiologist interpretation: CHEST ONE VIEW PORTABLE CLINICAL HISTORY: Altered mental status. Weakness. COMPARISON STUDY: 05/07/2016 FINDINGS: The heart is borderline enlarged. There is no failure. There is no lobar consolidation. There are stable left basilar atelectatic changes.[ IMPRESSION: Stable left basilar opacities, likely atelectatic. No acute findings. Electronically signed by: Mariano Paz M.D. 05/11/2016 4:59 PM Dictated Date/Time: 05/11/2016 4:[address] NONCONTRAST CT DOSE: 537.48 mGy.cm HISTORY: EVALUATE ALTERED MENTAL STATUS/WEAKNESS TECHNIQUE: Multiaxial CT images of the head were performed without the use of intravenous contrast. Automated exposure control was utilized for this study. Comparison: Head CT 01/11/2016. Findings: The paranasal sinuses and mastoid air cells are clear. The calvarium and skull base are intact. There is no mass, hematoma, midline shift, acute infarct. White matter hypodensity is nonspecific but suggestive of microvascular ischemic change. The ventricles and sulci demonstrate mild age-related involutional changes. Prominence of the right extra-axial space remains unchanged. Impression: No significant change compared to the prior study. No acute intracranial abnormality. Electronically signed by: Sonny Bardales M.D. 05/11/2016 5:14 PM Dictated Date/Time: 05/11/2016 5:11 PM Laboratory Results 05/11/16 16:50 Red Blood Count 3.59, Mean Corpuscular Volume 96.4, Mean Corpuscular Hemoglobin 33.7, Mean Corpuscular Hemoglobin Concent 35.0, Mean Platelet Volume 9.0, Neutrophils (%) (Auto) 66.4, Lymphocytes (%) (Auto) 21.1, Monocytes (%) (Auto) 10.7, Eosinophils (%) (Auto) 1.0, Basophils (%) (Auto) 0.4, Neutrophils # (Auto ) 5.50, Lymphocytes # (Auto) 1.75, Monocytes # (Auto) 0.89, Eosinophils # (Auto ) 0.08, Basophils # (Auto) 0.03 05/11/16 16:50 Test 05/11/16 16:50 05/11/16 17:25 White Blood Count 8.28 K/uL (4.8-10.8) Red Blood Count 3.59 M/uL (4.2-5.4) Hemoglobin 12.1 g/dL (12.0-16.0) Hematocrit 34.6 % (37-47) Mean Corpuscular Volume 96.4 fL (80-100) Mean Corpuscular Hemoglobin 33.7 pg (25-34) Mean Corpuscular Hemoglobin Concent 35.0 g/dl (32-36) Platelet Count 349 K/uL (130-400) Mean Platelet Volume 9.0 fL (7.4-10.4) Neutrophils (%) (Auto) 66.4 % Lymphocytes (%) (Auto) 21.1 % Monocytes (%) (Auto) 10.7 % Eosinophils (%) (Auto) 1.0 % Basophils (%) (Auto) 0.4 % Neutrophils # (Auto) 5.50 K/uL (1.4-6.5) Lymphocytes # (Auto) 1.75 K/uL (1.2-3.4) Monocytes # (Auto) 0.89 K/uL (0.11-0.59) Eosinophils # (Auto) 0.08 K/uL (0-0.5) Basophils # (Auto) 0.03 K/uL (0-0.2) RDW Standard Deviation 48.8 fL (36.4-46.3) RDW Coefficient of Variation 13.8 % (11.5-14.5) Immature Granulocyte % (Auto) 0.4 % Immature Granulocyte # (Auto) 0.03 K/uL (0.00-0.02) Anion Gap 10.0 mmol/L (3-11) Estimated GFR () 46.4 Estimated GFR (Non- 40.0 BUN/Creatinine Ratio 13.0 (10-20) Calcium Level 8.8 mg/dl (8.5-10.1) Total Bilirubin 0.4 mg/dl (0.2-1) Aspartate Amino Transf (AST/SGOT) 30 U/L (15-37) Alanine Aminotransferase (ALT/SGPT) 38 U/L (12-78) Alkaline Phosphatase 205 U/L (45-117) Total Creatine Kinase 42 U/L (26-192) Troponin I < 0.015 ng/ml (0-0.045) Total Protein 7.0 gm/dl (6.4-8.2) Albumin 3.8 gm/dl (3.4-5.0) Globulin 3.2 gm/dl (2.5-4.0) Albumin/Globulin Ratio 1.2 (0.9-2) Thyroid Stimulating Hormone (TSH) 3.160 uIu/ml (0.300-4.500) Free Thyroxine 1.61 ng/dl (0.80-1.60) Urine Color YELLOW Urine Appearance CLEAR (CLEAR) Urine pH 7.0 (4.5-7.5) Urine Specific [place] 1.009 (1.000-1.030) Urine Protein NEG (NEG) Urine Glucose (UA) NEG (NEG) Urine Ketones NEG (NEG) Urine Occult Blood NEG (NEG) Urine Nitrite NEG (NEG) Urine Bilirubin NEG (NEG) Urine Urobilinogen NEG (NEG) Urine Leukocyte Esterase NEG (NEG) Laboratory results reviewed by me. Medications Administered Medications (Trade) Dose Ordered Sig/[place] Route Start Time Stop Time Status Last Admin Dose Admin Sodium Chloride (Nss 1000ml) 500 ml @ 999 mls/hr Q31M STAT IV 05/11/16 16:29 05/11/16 16:59 DC 05/11/16 16:29 999 MLS/HR ECG Indication: other (Confusion) Rate (beats per minute): 70 Rhythm: normal sinus Findings: PAC, no acute ischemic change, other (LVH) ED Course 1625: The patient was evaluated in room C01B. A complete history and physical exam was performed. 1629: Sodium Chloride 500 ml @ 999 mls/hr IV 1758: Upon reexamination the patient is resting comfortably. I discussed results and treatment plan with the patient and her daughter. They verbalize agreement and understanding. The patient will be evaluated for further management. 1800: I discussed the patient's case with Dr. Garcia, from [facility]. Medical Decision Differential diagnosis includes but is not limited to stroke, electrolyte imbalance, anemia, infection, intracranial bleeding, medication reaction. There is no leukocytosis or concerning anemia. The patient's sodium is quite low at 126, no kidney failure, no hepatitis. Thyroid testing is consistent with someone using thyroid medication. Urinalysis does not show infection. Chest x-ray shows atelectasis, no infiltrate or CHF. Brain CT shows no acute bleed or mass effect. On exam, the patient was not toxic or febrile. There were no focal neurologic deficits. The patient presents with confusion and weakness. She feels nauseated. She is being treated for a urinary infection but her confusion and nausea has not improved. The patient is hyponatremic and this certainly could be causing her trouble. I spoke with the patient and case management. The on-call hospitalist was consulted. Further care in the hospital was felt warranted. The patient was given IV saline for hydration and sodium replacement. She is resting comfortably. Consults Time Called: 1755 Consulting Physician: Dr. Garcia, from [facility] Returned Call: 1800 I discussed the patient's case with Dr. Garcia, from [facility]. Impression Primary Impression: Change in mental status Additional Impressions: Weakness Hyponatremia Scribe Attestation The scribe's documentation has been prepared under my direction and personally reviewed by me in its entirety. I confirm that the note above accurately reflects all work, treatment, procedures, and medical decision making performed by me. Departure Information Dispostion Being Evaluated By Hospitalist Referrals No Doctor, Assigned (PCP) Patient Instructions My [facility] Problem Qualifiers
[2016-05-11 17:14] LABS: BASO % 0.4 %; BASO ABS # 0.03 K/uL (0-0.2); COMPLETE YES; HEMATOCRIT 34.6 % (37-47); IG% 0.4 %; LYMPH % 21.1 %; LYMPH ABS # 1.75 K/uL (1.2-3.4); MEAN CELL VOLUME 96.4 fL (80-100); MEAN CORPUSCULAR HEMOGLOBIN 33.7 pg (25-34); MONO % 10.7 %; NEUT % 66.4 %; PLATELET COUNT 349 K/uL (130-400); RED BLOOD COUNT 3.59 M/uL (4.2-5.4); WHITE BLOOD COUNT 8.28 K/uL (4.8-10.8)
--- NOTE | 2016-05-11 17:15 | DIAGNOSTIC IMAGING REPORT ---
HEAD CT NONCONTRAST CT DOSE: 537.48 mGy.cm HISTORY: EVALUATE ALTERED MENTAL STATUS/WEAKNESS TECHNIQUE: Multiaxial CT images of the head were performed without the use of intravenous contrast. Automated exposure control was utilized for this study. Comparison: Head CT 01/11/2016. Findings: The paranasal sinuses and mastoid air cells are clear. The calvarium and skull base are intact. There is no mass, hematoma, midline shift, acute infarct. White matter hypodensity is nonspecific but suggestive of microvascular ischemic change. The ventricles and sulci demonstrate mild age-related involutional changes. Prominence of the right extra-axial space remains unchanged. Impression: No significant change compared to the prior study. No acute intracranial abnormality. Electronically signed by: Sonny Bardales M.D. 05/11/2016 5:14 PM Dictated Date/Time: 05/11/2016 5:11 PM
[2016-05-11 17:40] LABS: ALT/SGPT 38 U/L (12-78); AST/SGOT 30 U/L (15-37); BLOOD UREA NITROGEN 16 mg/dl (7-18); CALCIUM 8.8 mg/dl (8.5-10.1); CARBON DIOXIDE 26 mmol/L (21-32); CHLORIDE 90 mmol/L (98-107); GLUCOSE 105 mg/dl (70-99); POTASSIUM 4.2 mmol/L (3.5-5.1); SODIUM 126 mmol/L (136-145)
[2016-05-11 17:51] LABS: ALB/GLOB RATIO 1.2 (0.9-2); ALKALINE PHOSPHATASE 205 U/L (45-117)
[2016-05-11 17:58] LABS: URINE APPEARANCE CLEAR (CLEAR); URINE BILIRUBIN NEG (NEG); URINE COLOR YELLOW; URINE NITRITE NEG (NEG); URINE SPECIFIC GRAVITY 1.009 (1.000-1.030); UROBILINOGEN NEG (NEG); ZZURINE CULT IF INDIC CATH NO
[2016-05-11 18:10] LABS: MANUAL MICROSCOPIC REQUIRED? NO; REVIEW REQ? NO
[2016-05-11] MEDS ORDERED: ONDANSETRON INJ 2 MG/ML 2 ML VIAL IV PRN (18:45)
[2016-05-11] MEDS ORDERED: HydrALAZINE HCL 20 MG/ML VIAL IV. PRN (18:45)
[2016-05-11] MEDS ORDERED: NITROGLYCERIN 0.4 MG SL PER TAB CHARGE UT PRN (19:00)
[2016-05-11] MEDS ORDERED: POLYETHYLENE (MIRALAX) 17 GM PACK PO PRN (19:00)
[2016-05-11 20:05] VITALS: BP 156/68; PULSE 71; TEMP 36.6; O2SAT 97
--- NOTE | 2016-05-11 20:20 | History and Physical ---
History & Physical Date & Time of Service: May 11, 2016 at 19:58 Chief Complaint: Confusion, Uti Primary Care Physician: David Henao PA-C History of Present Illness Source: patient, family (daughter) Pt is a 89 yo female who presents to the ER from [facility] with complaints of worsened confusion starting a few days ago. Per daughter pt has been treated for UTI since tuesday last week. At that time pt presented with abdominal pain with +UA and thusly placed on augmentin. Confusion continued to worsen per milagroser despite antibiotic therapy. Pt denies any fevers or chills, chest pain, sob, abd pain. Per daughter the confusion is mostly related to short term memory. Upon arrival to ER pt noted to be in hypertensive urgency and also noted to have a serum sodium of 126. Past Medical/Surgical History Medical Problems: (1) Benign hypertension Status: Chronic (2) Coronary artery disease Status: Chronic (3) Hyperlipidemia Status: Chronic (4) Hypothyroidism Status: Chronic (5) Urinary incontinence Status: Chronic Family History Lung disease Social History Smoking Status: Never Smoker Drug Use: none Marital Status: Occupational Status: unemployed Immunizations History of Influenza Vaccine: Yes Influenza Vaccine Date: Nov 22, 2011 History of Tetanus Vaccine?: long time ago History of Pneumococcal: Unknown History of Hepatitis B Vaccine: Unknown Multi-Drug Resistant Organisms History of MDRO: No Allergies Coded Allergies: Quinolones (Verified Allergy, Intermediate, , 05/11/16) Calcium Channel Blockers (Verified Allergy, Mild, 05/11/16) Felodipine (Verified Allergy, Mild, 05/11/16) Amlodipine (Verified Allergy, Unknown, UNKN, 05/11/16) Chloramphenicol (Verified Allergy, Unknown, UNKN, 05/11/16) Escitalopram (Verified Allergy, Unknown, UNKN, 05/11/16) Hydrochlorothiazide (Verified Allergy, Unknown, ., 05/11/16) Levalbuterol Hydrochloride (Verified Allergy, Unknown, UNKN, 05/11/16) Levofloxacin (Verified Allergy, Unknown, UNKN, 05/11/16) Levothyroxine (Verified Allergy, Unknown, UNKNOWN(CAN'T TAKE GENERIC, BRAND SYNTHROID IS OK), 05/11/16) Terazosin (Verified Allergy, Unknown, UNKN, 05/11/16) Home Medications Scheduled Acetaminophen (Tylenol), 650 MG PO DAILY Amoxicillin & Pot Clavulanate (Augmentin 875-125 mg), 1 TAB PO BID Aspirin (Aspirin Ec), 81 MG PO DAILY Atenolol (Tenormin), 37.5 MG PO DAILY Atorvastatin (Atorvastatin Calcium), 10 MG PO DAILY Calcium Carbonate-Vitamin D (Sm Calcium 500/Vitamin D3), 1 TAB PO DAILY Cyanocobalamin (Vitamin B-12), 1,000 MCG PO DAILY Diclofenac Sod (Voltaren), 1 APPLN TOP HS Levothyroxine Sodium (Levothyroxine Sodium), 75 MG PO 4XWK Levothyroxine Sodium (Levothyroxine Sodium), 100 MCG PO 3XWK Lisinopril (Lisinopril), 2.5 MG PO BID Nitroglycerin (Nitrostat), 0.4 MG UT PRN Nortriptyline HCl (Nortriptyline HCl), 10 MG PO QPM Ocuvite Preservision (Ocuvite Preservision), 1 TAB PO DAILY Scheduled PRN Acetaminophen (Tylenol), 650 MG PO Q4H PRN for Pain or Fever Polyethylene (Miralax), 17 GM PO BID PRN for Constipation Review of Systems Constitutional: No chills, No fever Eyes: No eye pain, No worsening of vision ENT: + hearing loss, No sore throat, No trouble swallowing Respiratory: No cough, No dyspnea on exertion, No shortness of breath, No sputum Cardiovascular: No chest pain, No orthopnea Abdomen: No diarrhea, No nausea, No pain, No vomiting Musculoskeletal: No joint pain, No muscle pain Genitourinary - Female: No dysuria, No urinary frequency, No urinary urgency Neurologic: + memory loss, No paralysis, No weakness Endocrine: No excessive thirst, No fatigue Integumentary: No itch, No rash Physical Exam Vital Signs Date Time Temp Pulse Resp B/P Pulse Ox O2 Delivery O2 Flow Rate FiO2 05/11/16 18:49 67 18 161/83 98 Room Air 05/11/16 17:45 75 05/11/16 17:21 74 18 201/83 98 Room Air 05/11/16 15:29 37.0 77 18 202/96 99 Room Air General Appearance: WD/WN, no apparent distress Head: normocephalic, atraumatic Eyes: PERRL, EOMI Neck: supple, no adenopathy Respiratory/Chest: lungs clear, normal breath sounds Cardiovascular: no edema, no gallop Abdomen/GI: non tender, soft Back: no CVA tenderness, no muscle spasm Neurologic/Psych: normal mood/affect, + disoriented Skin: warm/dry, no rash Diagnostics Laboratory Results Results Past 24 Hours Test 05/11/16 16:50 05/11/16 17:25 Range/Units White Blood Count 8.28 4.8-10.8 K/uL Red Blood Count 3.59 4.2-5.4 M/uL Hemoglobin 12.1 12.0-16.0 g/dL Hematocrit 34.6 37-47 % Mean Corpuscular Volume 96.4 80-100 fL Mean Corpuscular Hemoglobin 33.7 25-34 pg Mean Corpuscular Hemoglobin Concent 35.0 32-36 g/dl Platelet Count 349 130-400 K/uL Mean Platelet Volume 9.0 7.4-10.4 fL Neutrophils (%) (Auto) 66.4 % Lymphocytes (%) (Auto) 21.1 % Monocytes (%) (Auto) 10.7 % Eosinophils (%) (Auto) 1.0 % Basophils (%) (Auto) 0.4 % Neutrophils # (Auto) 5.50 1.4-6.5 K/uL Lymphocytes # (Auto) 1.75 1.2-3.4 K/uL Monocytes # (Auto) 0.89 0.11-0.59 K/uL Eosinophils # (Auto) 0.08 0-0.5 K/uL Basophils # (Auto) 0.03 0-0.2 K/uL RDW Standard Deviation 48.8 36.4-46.3 fL RDW Coefficient of Variation 13.8 11.5-14.5 % Immature Granulocyte % (Auto) 0.4 % Immature Granulocyte # (Auto) 0.03 0.00-0.02 K/uL Sodium Level 126 136-145 mmol/L Potassium Level 4.2 3.5-5.1 mmol/L Chloride Level 90 98-107 mmol/L Carbon Dioxide Level 26 21-32 mmol/L Anion Gap 10.0 3-11 mmol/L Blood Urea Nitrogen 16 7-18 mg/dl Creatinine 1.20 0.60-1.20 mg/dl Estimated GFR () 46.4 Estimated GFR (Non- 40.0 BUN/Creatinine Ratio 13.0 10-20 Random Glucose 105 70-99 mg/dl Calcium Level 8.8 8.5-10.1 mg/dl Total Bilirubin 0.4 0.2-1 mg/dl Aspartate Amino Transf (AST/SGOT) 30 15-37 U/L Alanine Aminotransferase (ALT/SGPT) 38 12-78 U/L Alkaline Phosphatase 205 45-117 U/L Total Creatine Kinase 42 26-192 U/L Troponin I < 0.015 0-0.045 ng/ml Total Protein 7.0 6.4-8.2 gm/dl Albumin 3.8 3.4-5.0 gm/dl Globulin 3.2 2.5-4.0 gm/dl Albumin/Globulin Ratio 1.2 0.9-2 Thyroid Stimulating Hormone (TSH) 3.160 0.300-4.500 uIu/ml Free Thyroxine 1.61 0.80-1.60 ng/dl Urine Color YELLOW Urine Appearance CLEAR CLEAR Urine pH 7.0 4.5-7.5 Urine Specific [place] 1.009 1.000-1.030 Urine Protein NEG NEG Urine Glucose (UA) NEG NEG Urine Ketones NEG NEG Urine Occult Blood NEG NEG Urine Nitrite NEG NEG Urine Bilirubin NEG NEG Urine Urobilinogen NEG NEG Urine Leukocyte Esterase NEG NEG Microbiology Results 05/11/16 Blood Culture, Received Pending 05/11/16 Blood Culture, Received Pending Impression Assessment and Plan Pt is a 89 yo female with hx of CKD, HTN, hypothyroidism, dyslipidemia and recent right hip fracture who presents to ER with 3 day hx of worsening confusion Encephalopathy likely secondary to hypertension and metabolic etiologies. BP as high as 202/96 in ER. Will utilize hydralazine PRN in addition to lisinopril and metoprolol pt takes at home. Serum sodium also noted to be low at 126. Daughter reports pt has not been eating well for past few days. Will start on IVF and recheck Na and also obtain urine osm and urine NA. CT head neg and no focal neuro deficits noted Recent right intertrochanteric fracture, PT/OT consulted Recent UTI cont augmentin at this time to finish course, UA unremarkable, no urinary sx CKD III Cr currently 1.2 with baseline Cr 1.7-1.8, cont IVF at this time HTN uncontrolled, cont lisinopril, metoprolol and hydralazine PRN Dyslipidemia cont statin Hypothyroidism cont synthroid, TSH WNL, T4 slightly subtherapeutic Depression cont nortriptyline Pt is FULL CODE VTE Prophylaxis VTE Risk Assessment Done? Y/N: Yes Risk Level: Moderate
[2016-05-11] MEDS: HEPARIN SOD 5000 UNIT/0.5 ML CARP SQ SCH (20:38)
[2016-05-11] MEDS: DICLOFENAC SOD 1% GEL 100 GM TUBE EXT SCH (20:47)
[2016-05-11] MEDS: SODIUM CHLORIDE 0.9% 1000ML 1,000 ML IV SCH (20:47)
[2016-05-11] MEDS: LISINOPRIL 2.5 MG TAB PO SCH (20:49)
[2016-05-11] MEDS: NORTRIPTYLINE HCL 10 MG CAP PO SCH (20:50)
[2016-05-11] MEDS: AMOXICILLIN/CLAVULANATE TAB 875 MG TAB PO SCH (20:51)
[2016-05-11 21:02] VITALS: BP 156/68; PULSE 71; TEMP 36.6; O2SAT 97; Ht 154.9 cm; Wt 62.5 kg
[2016-05-11 23:44] VITALS: BP 158/75; PULSE 68; TEMP 36.9; O2SAT 99
[2016-05-12] VITALS (11 sets, daily range): BP systolic 136–195; BP diastolic 68–74; PULSE 58–81; TEMP 36.3–36.7; O2SAT 94–98
[2016-05-12] MEDS: SODIUM CHLORIDE 0.9% 1000ML 1,000 ML IV SCH ×3 (05:01→19:51)
[2016-05-12] MEDS: HEPARIN SOD 5000 UNIT/0.5 ML CARP SQ SCH ×3 (05:38→21:57)
[2016-05-12] MEDS: LEVOTHYROXINE 100 MCG TAB PO SCH (05:45)
[2016-05-12 06:38] LABS: BASO % 0.3 %; BASO ABS # 0.02 K/uL (0-0.2); COMPLETE YES; HEMATOCRIT 32.7 % (37-47); IG% 0.3 %; LYMPH % 28.6 %; MEAN CELL VOLUME 95.9 fL (80-100); MEAN CORPUSCULAR HEMOGLOBIN 33.1 pg (25-34); MEAN CORPUSCULAR HGB CONC 34.6 g/dl (32-36); MEAN PLATELET VOLUME 8.8 fL (7.4-10.4); MONO % 12.2 %; NEUT % 56.6 %; PLATELET COUNT 317 K/uL (130-400); RED BLOOD COUNT 3.41 M/uL (4.2-5.4); WHITE BLOOD COUNT 6.65 K/uL (4.8-10.8)
[2016-05-12 07:13] LABS: BUN/CREATININE RATIO 14.7 (10-20); CALCIUM 8.4 mg/dl (8.5-10.1); POTASSIUM 4.2 mmol/L (3.5-5.1)
[2016-05-12] MEDS: ATORVASTATIN 10 MG TAB PO SCH (07:57)
[2016-05-12] MEDS: CEROVITE ADV FORMULA TAB PO SCH (07:57)
[2016-05-12] MEDS: ASPIRIN 81 MG ECTAB PO SCH (07:57)
[2016-05-12] MEDS: CYANOCOBALAMIN 500 MCG TAB (VIT B-12) PO SCH (07:57)
[2016-05-12] MEDS: AMOXICILLIN/CLAVULANATE TAB 875 MG TAB PO SCH ×2 (07:57→17:19)
[2016-05-12] MEDS: LISINOPRIL 2.5 MG TAB PO SCH (07:58)
--- NOTE | 2016-05-12 19:29 | Hospitalist Progress Note ---
Hospitalist Progress Note Date of Service May 12, 2016. Subjective Pt evaluation today including: conversation w/ patient patient is pleasantly confused requiring redirecting every 15 minutes. Wanting to go home. Has been speaking with her mom who is . Medications Medications (Trade) Dose Ordered Sig/[place] Route Start Time Stop Time Status Last Admin Dose Admin Heparin Sodium (Porcine) 5000 unit 5,000 unit Q8 SQ 05/11/16 22:00 06/10/16 21:59 05/12/16 14:34 5,000 UNIT Sodium Chloride (Nss 1000ml) 1,000 ml @ 125 mls/hr Q8H IV 05/11/16 20:15 06/10/16 20:14 05/12/16 12:07 125 MLS/HR Amoxicillin/ Clavulanate Potassium (Augmentin Tab) 875 mg BIDM PO 05/11/16 20:00 05/16/16 23:59 05/12/16 17:19 875 MG Aspirin (Ecotrin Tab) 81 mg DAILY PO 05/12/16 09:00 06/11/16 08:59 05/12/16 07:57 81 MG Atenolol (Tenormin Tab) 37.5 mg DAILY PO 05/12/16 09:00 06/11/16 08:59 05/12/16 07:57 37.5 MG Atorvastatin Calcium (Lipitor Tab) 10 mg DAILY PO 05/12/16 09:00 06/11/16 08:59 05/12/16 07:57 10 MG Cyanocobalamin (Vitamin B-12 Tab) 1,000 mcg DAILY PO 05/12/16 09:00 06/11/16 08:59 05/12/16 07:57 1,000 MCG Diclofenac Sodium (Voltaren 1% Top Gel) 1 appln HS EXT 05/11/16 21:00 06/10/16 20:59 05/11/16 20:47 1 APPLN Levothyroxine Sodium (Synthroid Tab) 100 mcg MoWeFr@0630 PO 05/12/16 06:30 06/11/16 06:29 05/12/16 05:45 100 MCG Lisinopril (Zestril Tab) 2.5 mg BID PO 05/11/16 21:00 05/12/16 13:50 DC 05/12/16 07:58 2.5 MG Nortriptyline HCl (Pamelor Cap) 10 mg QPM PO 05/11/16 21:00 06/10/16 20:59 05/11/16 20:50 10 MG Multivitamins/ Minerals (Multivitamin W/ Minerals Tab) 1 tab DAILY PO 05/12/16 09:00 06/11/16 08:59 05/12/16 07:57 1 TAB Objective Vital Signs Date Time Temp Pulse Resp B/P Pulse Ox O2 Delivery O2 Flow Rate FiO2 05/12/16 16:00 98 Room Air 05/12/16 15:11 36.3 73 18 147/68 98 Room Air 05/12/16 11:53 98 Room Air 05/12/16 11:23 36.5 58 18 162/72 98 Room Air 05/12/16 07:30 95 Room Air 05/12/16 07:27 36.6 75 18 195/74 95 Room Air 05/12/16 04:00 Room Air 05/12/16 04:00 36.6 67 18 136/70 95 Room Air 05/12/16 00:01 Room Air 05/11/16 23:44 36.9 68 16 158/75 99 Room Air 05/11/16 21:02 36.6 71 20 156/68 97 Room Air 05/11/16 20:05 36.6 71 18 156/68 97 Room Air Physical Exam General Appearance: WD/WN, no apparent distress Eyes: normal inspection, sclerae normal ENT: hearing grossly normal Neck: trachea midline Respiratory/Chest: lungs clear Cardiovascular: regular rate, rhythm Abdomen: normal bowel sounds Neurologic/Psychiatric: alert (confused) Skin: normal color Laboratory Results Last 24 Hours Test 05/11/16 21:10 05/12/16 06:19 05/12/16 14:11 Sodium Level 130 mmol/L 138 mmol/L Troponin I 0.026 ng/ml 0.023 ng/ml < 0.015 ng/ml White Blood Count 6.65 K/uL Red Blood Count 3.41 M/uL Hemoglobin 11.3 g/dL Hematocrit 32.7 % Mean Corpuscular Volume 95.9 fL Mean Corpuscular Hemoglobin 33.1 pg Mean Corpuscular Hemoglobin Concent 34.6 g/dl Platelet Count 317 K/uL Mean Platelet Volume 8.8 fL Neutrophils (%) (Auto) 56.6 % Lymphocytes (%) (Auto) 28.6 % Monocytes (%) (Auto) 12.2 % Eosinophils (%) (Auto) 2.0 % Basophils (%) (Auto) 0.3 % Neutrophils # (Auto) 3.77 K/uL Lymphocytes # (Auto) 1.90 K/uL Monocytes # (Auto) 0.81 K/uL Eosinophils # (Auto) 0.13 K/uL Basophils # (Auto) 0.02 K/uL RDW Standard Deviation 49.6 fL RDW Coefficient of Variation 14.0 % Immature Granulocyte % (Auto) 0.3 % Immature Granulocyte # (Auto) 0.02 K/uL Potassium Level 4.2 mmol/L Chloride Level 104 mmol/L Carbon Dioxide Level 26 mmol/L Anion Gap 8.0 mmol/L Blood Urea Nitrogen 15 mg/dl Creatinine 1.00 mg/dl Est Creatinine Clear Calc Drug Dose 32.1 ml/min Estimated GFR () 57.8 Estimated GFR (Non- 49.9 BUN/Creatinine Ratio 14.7 Random Glucose 89 mg/dl Calcium Level 8.4 mg/dl Assessment and Plan (1) Encephalopathy Assessment & Plan: Patient with a history of dementia with hip fx last month who presents with hyponatremia causing acute encepholopathy. Her symptoms have improved with iv hydration. Will ask palliative care to see for goals of care discussion (2) Hyponatremia (3) Hypothyroidism (4) Hyperlipidemia (5) Coronary artery disease (6) Benign hypertension Discharge planning: long term facility
[2016-05-12] MEDS: NORTRIPTYLINE HCL 10 MG CAP PO SCH (21:54)
[2016-05-12] MEDS: LISINOPRIL 5 MG TAB PO SCH (21:55)
[2016-05-12] MEDS: DICLOFENAC SOD 1% GEL 100 GM TUBE EXT SCH (21:56)
[2016-05-13] VITALS (10 sets, daily range): BP systolic 137–178; BP diastolic 65–79; PULSE 68–89; TEMP 36.3–37; O2SAT 92–99
[2016-05-13] MEDS: ACETAMINOPHEN 325 MG TAB PO PRN (01:04)
[2016-05-13] MEDS: DICLOFENAC SOD 1% GEL 100 GM TUBE EXT SCH ×2 (03:07→20:43)
[2016-05-13] MEDS: SODIUM CHLORIDE 0.9% 1000ML 1,000 ML IV SCH ×3 (04:01→19:50)
[2016-05-13] MEDS: HEPARIN SOD 5000 UNIT/0.5 ML CARP SQ SCH ×3 (06:12→21:31)
[2016-05-13] MEDS ORDERED: LEVOTHYROXINE 75 MCG TAB PO SCH (06:30)
[2016-05-13 07:05] LABS: BASO % 0.6 %; BASO ABS # 0.05 K/uL (0-0.2); COMPLETE YES; EOS % 3.4 %; HEMATOCRIT 31.2 % (37-47); IG% 0.2 %; LYMPH % 28.9 %; LYMPH ABS # 2.33 K/uL (1.2-3.4); MEAN CELL VOLUME 97.2 fL (80-100); MEAN PLATELET VOLUME 8.8 fL (7.4-10.4); MONO % 9.7 %; NEUT % 57.2 %; PLATELET COUNT 343 K/uL (130-400); RED BLOOD COUNT 3.21 M/uL (4.2-5.4); WHITE BLOOD COUNT 8.05 K/uL (4.8-10.8)
[2016-05-13 07:42] LABS: BUN/CREATININE RATIO 16.6 (10-20); CALCIUM 8.1 mg/dl (8.5-10.1); CREATININE 1.1 mg/dl (0.60-1.20); POTASSIUM 4.4 mmol/L (3.5-5.1)
[2016-05-13] MEDS: ASPIRIN 81 MG ECTAB PO SCH (07:58)
[2016-05-13] MEDS: AMOXICILLIN/CLAVULANATE TAB 875 MG TAB PO SCH ×2 (07:59→15:27)
[2016-05-13] MEDS: ATORVASTATIN 10 MG TAB PO SCH (07:59)
[2016-05-13] MEDS: CEROVITE ADV FORMULA TAB PO SCH (07:59)
[2016-05-13] MEDS: CYANOCOBALAMIN 500 MCG TAB (VIT B-12) PO SCH (07:59)
[2016-05-13] MEDS: LISINOPRIL 5 MG TAB PO SCH ×2 (08:00→20:44)
[2016-05-13] MEDS ORDERED: NURSING VERBAL MED ORDER ONE (15:15)
[2016-05-13] MEDS ORDERED: ALPRAZOLAM 0.25 MG TAB PO ONE (15:30)
[2016-05-13] MEDS: NORTRIPTYLINE HCL 10 MG CAP PO SCH (20:44)
[2016-05-14] MEDS: SODIUM CHLORIDE 0.9% 1000ML 1,000 ML IV SCH (03:45)
[2016-05-14] MEDS: HEPARIN SOD 5000 UNIT/0.5 ML CARP SQ SCH ×2 (05:35→14:00)
[2016-05-14] MEDS: LEVOTHYROXINE 100 MCG TAB PO SCH (05:37)
[2016-05-14 07:00] LABS: BUN/CREATININE RATIO 17.2 (10-20); CALCIUM 8.5 mg/dl (8.5-10.1); POTASSIUM 4.1 mmol/L (3.5-5.1)
[2016-05-14 07:23] VITALS: BP 190/70; PULSE 74; TEMP 36.7; O2SAT 98
[2016-05-14] MEDS: LISINOPRIL 5 MG TAB PO SCH (07:44)
[2016-05-14] MEDS: AMOXICILLIN/CLAVULANATE TAB 875 MG TAB PO SCH (07:44)
[2016-05-14] MEDS: CYANOCOBALAMIN 500 MCG TAB (VIT B-12) PO SCH (07:44)
[2016-05-14] MEDS: ATORVASTATIN 10 MG TAB PO SCH (07:44)
[2016-05-14] MEDS: ASPIRIN 81 MG ECTAB PO SCH (07:44)
[2016-05-14] MEDS: CEROVITE ADV FORMULA TAB PO SCH (07:45)
[2016-05-14] MEDS: ACETAMINOPHEN 325 MG TAB PO PRN (07:51)
[2016-05-14 08:00] VITALS: O2SAT 98
[2016-05-14 09:34] VITALS: BP 158/71; PULSE 79; TEMP 36.6; O2SAT 96
[2016-05-14] MEDS ORDERED: NURSING VERBAL MED ORDER ONE ×2 (10:00→11:45)
--- NOTE | 2016-05-14 10:17 | Palliative Care Progress Note ---
Palliative Care Progress Note Date of Service May 14, 2016. Subjective The patient's daughter indicated to the case supervisor yesterday that she did not want a palliative care consult. Asked Dr. Felipe to clarify. Patient not seen by me, consult not done per patient's daughter's request.
[2016-05-14] MEDS ORDERED: LORAZEPAM INJ 0.25 MG in SYRINGE 0.125 ML IV ONE (10:30)
[2016-05-14 10:34] VITALS: BP 158/71; PULSE 79; TEMP 36.6; O2SAT 96
--- NOTE | 2016-05-14 11:26 | Discharge Instructions ---
Discharge Instructions Date of Service May 14, 2016. Admission Reason for Admission: Confusion, Uti Discharge Discharge Diagnosis / Problem: encepholopathy hyponatremia uti Discharge Goals Goal(s): Improve function Activity Recommendations Activity Limitations: per Instructions/Follow-up section . Current Hospital Diet Patient's current hospital diet: Low Fat Diet, Low Sodium Diet (2gm Na) Discharge Diet Recommended Diet: AHA Diet (Heart Healthy) Pending Studies Studies pending at discharge: no Medical Emergencies . Who to Call and When: Medical Emergencies: If at any time you feel your situation is an emergency, please call 911 immediately. . Non-Emergent Contact Non-Emergency issues call your: Primary Care Provider . Past History Medical & Surgical History: (1) Dementia (2) Hyponatremia (3) Encephalopathy . "Provider Documentation" section prepared by Jayme Felipe. VTE Core Measure Inpt VTE Proph given/why not?: Unfractionated heparin SQ
--- NOTE | 2016-05-24 04:41 | INTERNAL MED PROGRESS NOTE ---
DATE: 05/13/2016 SUBJECTIVE: The patient remains pleasantly confused, wanting to go home. PHYSICAL EXAMINATION: VITAL SIGNS: Temperature is 36.5, pulse of 89, blood pressure 168/71, sats 92% on room air. GENERAL: Elderly female in no apparent distress. HEENT: Normocephalic, atraumatic. Moist mucous membranes. NECK: Supple. LUNGS: Clear to auscultation. ABDOMEN: Soft, nontender, nondistended. EXTREMITIES: No clubbing, cyanosis, edema. NEUROLOGIC: Grossly nonfocal. LABORATORY DATA: White count of 8, hemoglobin of 10.6, hematocrit of 31.2 and platelet count of 343. Sodium is improved to 140, potassium of 4.4, chloride 108, bicarbonate of 24, BUN of 18, creatinine of 1.1. Troponins are unremarkable. ASSESSMENT AND PLAN: This is an 89-year-old who presents with history of dementia, status post a hip fracture last month and presenting with hyponatremia and acute encephalopathy. 1. Acute encephalopathy is improved. The patient is back to her baseline. 2. Hyponatremia, resolved. 3. Hypothyroidism. 4. Hyperlipidemia. 5. Coronary artery disease. 6. Benign hypertension. DISCHARGE PLANNING: [facility] to [facility] facility.
--- NOTE | 2016-05-24 13:28 | DISCHARGE SUMMARY ---
Please see dictated H\T\P for full details of her presentation. BRIEFLY: The patient is an 89-year-old who presented for symptoms of worsening confusion, had been on treatment for a UTI since last week and was placed on Augmentin, confusion worsened despite antibiotic therapy and she presented to Emergency Room with hypertensive urgency and a serum sodium of 126. She was admitted with a diagnosis of encephalopathy secondary to hypertension, metabolic abnormalities, blood pressure was originally 202/96. She also had not been eating over the past couple of days and was hyponatremic. The patient was hydrated. Blood cultures had no growth. The patient also was negative for cardiac enzymes. UA was unremarkable and chest x-ray was consistent with atelectasis, no acute findings. CT of the head showed no significant change, no acute intracranial abnormality. Case was discussed with her daughter because of her dementia and recent hip fracture. Her prognosis is unfortunately less than 6 months. She will return to the facility for further care. Code status was changed to do not resuscitate, based upon conversation with the patient's daughter. Time spent in review of the chart, discussion with the patient's daughter on the date of discharge - 35 minutes.
== END 2016-05-14 15:01 | DRG 640 ==
LOC: ENRESERVTM → ENRESERVDT → C.EDB 15:25 → C.MED 18:45
PROVIDERS: ADMIT Hospitalist; ATTEND Hospitalist
DX: E87.1 Hypo-osmolality and hyponatremia (principal); G93.41 Metabolic encephalopathy; N39.0 Urinary tract infection, site not specified; I12.9 Hypertensive chronic kidney disease with stage 1 through stage 4 chronic kidney disease, or unspecified chronic kidney disease; N18.3 Chronic kidney disease, stage 3 (moderate); I25.10 Atherosclerotic heart disease of native coronary artery without angina pectoris; E78.5 Hyperlipidemia, unspecified; E03.9 Hypothyroidism, unspecified; R32 Unspecified urinary incontinence; F32.9 Major depressive disorder, single episode, unspecified; F03.90 Unspecified dementia, unspecified severity, without behavioral disturbance, psychotic disturbance, mood disturbance, and anxiety